=== PATIENT | female | born 1955 | race Caucasian/White ===

== ENCOUNTER 2016-03-25 10:24 | Emergency (ER) | payer OTHER ==
[2016-03-25 10:47] VITALS: BP 105/62
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
[2016-03-25] MEDS ORDERED: LORazepam TAB(*) 1 MG PO ONE ×2 (12:35→12:47)
== END 2016-03-25 12:57 | disposition home or self-care (01) ==
LOC: UCCORT 10:24
DX: F41.9 Anxiety disorder, unspecified (principal); F42.9 Obsessive-compulsive disorder, unspecified; E03.9 Hypothyroidism, unspecified; Z88.5 Allergy status to narcotic agent; Z88.2 Allergy status to sulfonamides
CPT/HCPCS: 99212; A9270-GY; G0463

== ENCOUNTER 2016-05-19 17:08 | Inpatient (IN) | payer OTHER ==
[2016-05-19 17:56] LABS: Hematocrit 39 % (35-47); Hemoglobin 13.4 g/dl (12.0-16.0); Mean Corpuscular HGB Conc 34 g/dl (31-36); Mean Corpuscular Hemoglobin 31 pg (27-31); Mean Corpuscular Volume 92 fL (80-97); Mean Platelet Volume 8 um3 (7.4-10.4); Red Blood Count 4.28 10^6/ul (4.0-5.4); Red Cell Distribution Width 14 % (10.5-15); White Blood Count 9.8 10^3/ul (3.5-10.8)
[2016-05-19 18:09] LABS: Urine Bacteria Absent (Absent); Urine Bilirubin Negative (Negative); Urine Glucose Negative (Negative); Urine Nitrite Negative (Negative)
[2016-05-19 18:11] LABS: ALT 21 U/L (7-52); AST 20 U/L (13-39); Albumin 4.5 g/dL (3.2-5.2); Alkaline Phosphatase 61 U/L (34-104); Anion Gap 7 mmol/L (2-11); BUN/Creatinine Ratio 16.9 (8-20); Blood Urea Nitrogen 13 mg/dL (6-24); CO2 Carbon Dioxide 23 mmol/L (22-32); Calcium 9.5 mg/dL (8.6-10.3); Chloride 105 mmol/L (101-111); EGFR Non-African American 76.2 (>60); Globulin 2.9 g/dL (2-4); Glucose 81 mg/dL (70-100); Sodium 135 mmol/L (133-145); Total Protein 7.4 g/dL (6.4-8.9)
[2016-05-19 18:12] LABS: Benzodiazepine Urine Screen None Detected (None Detect)
[2016-05-19 18:25] LABS: Acetaminophen < 15 mcg/mL; Alcohol 161 mg/dL (<10); Salicylate < 2.50 mg/dL (<30)
[2016-05-19] MEDS ORDERED: LORazepam TAB(*) 1 MG PO ONE (18:33)
[2016-05-19 18:35] LABS: TSH (Thyroid Stimulating Horm) 8.07 mcIU/mL (0.34-5.60)
--- NOTE | 2016-05-19 19:16 | ED ---
Mahin Plummer Billy, scribed for Zain Grier MD on 05/19/16 at 1738 . Psychiatric Complaint - HPI Summary HPI Summary: Patient is a 60 year-old female with a history of "psychosis and uncontrolled OCD" coming to [facility] for MHE. She was brought to the ED by her daughter. She states that her symptoms have been ongoing for the last year, and have gotten much worse in the last 3 weeks. She reports visual hallucinations and anxiety. Denies any prior anti-psychotic meds. She reports SI, stating, "I don't want to live but I don't want to ." Denies HI. She had two beers today to self- medicate for her OCD. - History Of Current Complaint Chief Complaint: EDMentalHealth Time Seen by Provider: 05/19/16 17:22 Hx Obtained From: Patient Hx Last Menstrual Period: 5 yrs Onset/Duration: Gradual Onset, Worse Since - 3 weeks Timing: Constant Severity Initially: Moderate Severity Currently: Moderate Character: Depressed, Anxious Aggravating Factor(s): Nothing Alleviating Factor(s): Nothing Associated Signs And Symptoms: Positive: Hallucinating Related History: Positive For: Prior Psychiatric Issues Has Suicidal: Reports: Thoughts. Denies: With A Plan Has Homicidal: Denies: Thoughts, With A Plan - Allergies/Home Medications Allergies/Adverse Reactions: Allergies Allergy/AdvReac Type Severity Reaction Status Date / Time Morphine Allergy Severe Swelling Verified 05/19/16 17:12 Of Face,Lips,& Throat Sulfa Drugs Allergy Intermediate Rash Verified 05/19/16 17:12 PMH/Surg Hx/FS Hx/Imm Hx Endocrine/Hematology History: Reports: Hx Thyroid Disease - Hypothyroid Cardiovascular History: Denies: Hx Pacemaker/ICD Sensory History: Denies: Hx Hearing Aid Psychiatric History: Reports: Other Psychiatric Issues/Disorders - OCD, psychosis Denies: Hx Panic Disorder Infectious Disease History: No Infectious Disease History: Denies: Traveled Outside the [place] in Last 30 Days - Family History Known Family History: Positive: Other - no hx suicide; kidney disease in her daughter - Social History Alcohol Use: None Substance Use Type: Reports: None Smoking Status (MU): Heavy Every Day Tobacco Smoker Review of Systems Negative: Fever Positive: Anxious, Depressed, Other - see HPI All Other Systems Reviewed And Are Negative: Yes Physical Exam Triage Information Reviewed: Yes Vital Signs On Initial Exam: Initial Vitals Temp Pulse Resp BP Pulse Ox 97.4 F 71 18 123/74 98 05/19/16 17:10 05/19/16 17:10 05/19/16 17:10 05/19/16 17:10 05/19/16 17:10 Vital Signs Reviewed: Yes Appearance: Positive: Well-Appearing, No Pain Distress Skin: Positive: Warm, Skin Color Reflects Adequate Perfusion, Dry Head/Face: Positive: Normal Head/Face Inspection Eyes: Positive: EOMI, DELFINA ENT: Positive: Normal ENT inspection Neck: Positive: Supple, Nontender Respiratory/Lung Sounds: Positive: Clear to Auscultation, Breath Sounds Present Cardiovascular: Positive: RRR Abdomen Description: Positive: Nontender, Soft Bowel Sounds: Positive: Present Musculoskeletal: Positive: Normal, Strength/ROM Intact Neurological: Positive: Normal, Sensory/Motor Intact, Alert, Oriented to Person Place, Time Psychiatric: Positive: Affect/Mood Appropriate AVPU Assessment: Alert Diagnostics - Vital Signs Vital Signs Temp Pulse Resp BP Pulse Ox 05/19/16 17:10 97.4 F 71 18 123/74 98 - Laboratory Lab Results: Lab Results 05/19/16 05/19/16 05/19/16 Range/Units 17:35 17:35 17:35 WBC 9.8 (3.5-10.8) 10^3/ul RBC 4.28 (4.0-5.4) 10^6/ul Hgb 13.4 (12.0-16.0) g/dl Hct 39 (35-47) % MCV 92 (80-97) fL MCH 31 (27-31) pg MCHC 34 (31-36) g/dl RDW 14 (10.5-15) % Plt Count 328 (150-450) 10^3/ul MPV 8 (7.4-10.4) um3 Neut % (Auto) 44.5 (38-83) % Lymph % (Auto) 44.8 (25-47) % [place] % (Auto) 4.7 (1-9) % Eos % (Auto) 4.7 (0-6) % Baso % (Auto) 1.3 (0-2) % Absolute Neuts (auto) 4.4 (1.5-7.7) 10^3/ul Absolute Lymphs (auto) 4.4 (1.0-4.8) 10^3/ul Absolute Monos (auto) 0.5 (0-0.8) 10^3/ul Absolute Eos (auto) 0.5 (0-0.6) 10^3/ul Absolute Basos (auto) 0.1 (0-0.2) 10^3/ul Absolute Nucleated RBC 0.01 10^3/ul Nucleated RBC % 0.1 Sodium 135 (133-145) mmol/L Potassium 4.0 (3.5-5.0) mmol/L Chloride 105 (101-111) mmol/L Carbon Dioxide 23 (22-32) mmol/L Anion Gap 7 (2-11) mmol/L BUN 13 (6-24) mg/dL Creatinine 0.77 (0.51-0.95) mg/dL Est GFR ( Amer) 98.0 (>60) Est GFR (Non-Af Amer) 76.2 (>60) BUN/Creatinine Ratio 16.9 (8-20) Glucose 81 (70-100) mg/dL Calcium 9.5 (8.6-10.3) mg/dL Total Bilirubin 0.30 (0.2-1.0) mg/dL AST 20 (13-39) U/L ALT 21 (7-52) U/L Alkaline Phosphatase 61 (34-104) U/L Total Protein 7.4 (6.4-8.9) g/dL Albumin 4.5 (3.2-5.2) g/dL Globulin 2.9 (2-4) g/dL Albumin/Globulin Ratio 1.6 (1-3) TSH 8.07 H (0.34-5.60) mcIU/mL Urine Color Straw Urine Appearance Clear Urine pH 6.0 (5-9) Ur Specific [place] 1.003 L (1.010-1.030) Urine Protein Negative (Negative) Urine Ketones Negative (Negative) Urine Blood Negative (Negative) Urine Nitrate Negative (Negative) Urine Bilirubin Negative (Negative) Urine Urobilinogen Negative (Negative) Ur Leukocyte Esterase 3+ H (Negative) Urine WBC (Auto) 2+(11-20/hpf) H (Absent) Urine RBC (Auto) Absent (Absent) Ur Squamous Epith Cells Present H (Absent) Urine Bacteria Absent (Absent) Urine Glucose Negative (Negative) Salicylates < 2.50 (<30) mg/dL Urine Opiates Screen (None Detect) Acetaminophen < 15 mcg/mL Ur Barbiturates Screen (None Detect) Ur Phencyclidine Scrn (None Detect) Ur Amphetamines Screen (None Detect) U Benzodiazepines Scrn (None Detect) Urine Cocaine Screen (None Detect) U Cannabinoids Screen (None Detect) Serum Alcohol 161 H (<10) mg/dL 05/19/16 Range/Units 17:35 WBC (3.5-10.8) 10^3/ul RBC (4.0-5.4) 10^6/ul Hgb (12.0-16.0) g/dl Hct (35-47) % MCV (80-97) fL MCH (27-31) pg MCHC (31-36) g/dl RDW (10.5-15) % Plt Count (150-450) 10^3/ul MPV (7.4-10.4) um3 Neut % (Auto) (38-83) % Lymph % (Auto) (25-47) % [place] % (Auto) (1-9) % Eos % (Auto) (0-6) % Baso % (Auto) (0-2) % Absolute Neuts (auto) (1.5-7.7) 10^3/ul Absolute Lymphs (auto) (1.0-4.8) 10^3/ul Absolute Monos (auto) (0-0.8) 10^3/ul Absolute Eos (auto) (0-0.6) 10^3/ul Absolute Basos (auto) (0-0.2) 10^3/ul Absolute Nucleated RBC 10^3/ul Nucleated RBC % Sodium (133-145) mmol/L Potassium (3.5-5.0) mmol/L Chloride (101-111) mmol/L Carbon Dioxide (22-32) mmol/L Anion Gap (2-11) mmol/L BUN (6-24) mg/dL Creatinine (0.51-0.95) mg/dL Est GFR ( Amer) (>60) Est GFR (Non-Af Amer) (>60) BUN/Creatinine Ratio (8-20) Glucose (70-100) mg/dL Calcium (8.6-10.3) mg/dL Total Bilirubin (0.2-1.0) mg/dL AST (13-39) U/L ALT (7-52) U/L Alkaline Phosphatase (34-104) U/L Total Protein (6.4-8.9) g/dL Albumin (3.2-5.2) g/dL Globulin (2-4) g/dL Albumin/Globulin Ratio (1-3) TSH (0.34-5.60) mcIU/mL Urine Color Urine Appearance Urine pH (5-9) Ur Specific [place] (1.010-1.030) Urine Protein (Negative) Urine Ketones (Negative) Urine Blood (Negative) Urine Nitrate (Negative) Urine Bilirubin (Negative) Urine Urobilinogen (Negative) Ur Leukocyte Esterase (Negative) Urine WBC (Auto) (Absent) Urine RBC (Auto) (Absent) Ur Squamous Epith Cells (Absent) Urine Bacteria (Absent) Urine Glucose (Negative) Salicylates (<30) mg/dL Urine Opiates Screen None detected (None Detect) Acetaminophen mcg/mL Ur Barbiturates Screen None detected (None Detect) Ur Phencyclidine Scrn None detected (None Detect) Ur Amphetamines Screen None detected (None Detect) U Benzodiazepines Scrn None detected (None Detect) Urine Cocaine Screen None detected (None Detect) U Cannabinoids Screen None detected (None Detect) Serum Alcohol (<10) mg/dL Result Diagrams: 05/19/16 17:35 05/19/16 17:35 Lab Statement: Any lab studies that have been ordered have been reviewed, and results considered in the medical decision making process. Course/Dx - Course Assessment/Plan: MHE PENDING AT SHIFT CHANGE STABLE - Differential Dx/Clinical Impression Provider Diagnosis: Mental health problem, Hypothyroid Discharge - Discharge Plan Condition: Stable Disposition: [facility]IATRIC FACILITY[facility] Referrals: Zulema Zaragoza MD [Primary Care Provider] - The documentation as recorded by the Mahin henderson Billy accurately reflects the service I personally performed and the decisions made by me, Zani Grier MD.
[2016-05-19] MEDS ORDERED: Nitrofurantoin Macrocrystals* 50 MG CAP PO ONE (20:18)
[2016-05-19 21:23] LABS: Free T4 0.76 ng/dL (0.61-1.12)
[2016-05-19 21:27] LABS: Total T3 0.86 ng/mL (0.87-1.78)
[2016-05-20] MEDS ORDERED: Al Hydrox/Mg Hydrox/Simet LIQ* 30 ML UDC PO PRN (00:30)
[2016-05-20] MEDS ORDERED: Nicotine Inhaler* 10 MG AMP INH PRN (00:30)
[2016-05-20] MEDS ORDERED: Mouth Piece, Nicotine* 1 EACH CARTRIDGE INH ONE (01:00)
[2016-05-20] MEDS ORDERED: Nitrofurantoin Macrocrystals* 100 MG CAP PO ONE (01:00)
[2016-05-20] MEDS: Levothyroxine TAB* 88 MCG TAB PO SCH (08:21)
[2016-05-20] MEDS: Nicotine PATCH 14 MG/24 HR* PATCH TRANSDERM SCH (08:21)
[2016-05-20] MEDS: Vitamin THERAPEUTIC TAB PO SCH (08:21)
[2016-05-20] MEDS: FLUoxetine CAP* 20 MG PO SCH (14:29)
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
[2016-05-20] MEDS: QUEtiapine TAB* 25 MG PO PRN (20:26)
[2016-05-20] MEDS: Nicotine Patch Removal NOTE PATCH OFF SCH (20:34)
[2016-05-21] MEDS: Nicotine PATCH 14 MG/24 HR* PATCH TRANSDERM SCH (08:30)
[2016-05-21] MEDS: Vitamin THERAPEUTIC TAB PO SCH (08:31)
[2016-05-21] MEDS: Levothyroxine TAB* 88 MCG TAB PO SCH (08:31)
[2016-05-21] MEDS: FLUoxetine CAP* 20 MG PO SCH (08:31)
[2016-05-21] MEDS: Acetaminophen TAB* 325 MG PO PRN (13:53)
[2016-05-21] MEDS: QUEtiapine TAB* 25 MG PO PRN (22:25)
[2016-05-21] MEDS: Nicotine Patch Removal NOTE PATCH OFF SCH (22:30)
[2016-05-22] MEDS: Nicotine PATCH 14 MG/24 HR* PATCH TRANSDERM SCH (08:40)
[2016-05-22] MEDS: Vitamin THERAPEUTIC TAB PO SCH (08:41)
[2016-05-22] MEDS: Levothyroxine TAB* 88 MCG TAB PO SCH (08:41)
[2016-05-22] MEDS: FLUoxetine CAP* 20 MG PO SCH (08:41)
[2016-05-22 09:08] VITALS: BP 96/57
[2016-05-22] MEDS: Acetaminophen TAB* 325 MG PO PRN (11:36)
--- NOTE | 2016-05-22 13:09 | DS ---
Subjective - Subjective Service Types: [id number] [facility] Day Mgmt simple under 30 min Discharge Date: 05/22/16 Subjective: Ronda reports feeling much better, safe and ready to discharge. 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 Ronda denies any UTI symptoms: she feels she had increased urinary frequency on admission due to anxiety. She has no other physical complaints. Objective - Appearance Appearance: Healthy Appearing Dysmorphic Features: No Hygiene: Normal Grooming: Well Kept - Behavior Psychomotor Activities: Normal Exhibits Abnormal Movement: No - Attitude and Relatedness Attitude and Relatedness: Well Related Eye Contact: Good - Speech Quality: Unpressured Latencies: Normal Quantity: Appropriate - Mood Patient's Decription of Mood: "Good" - Affect Observed Affect: Good Affect Consistent with: Euthymia - Thought Process Patient's Thought Process: Coherent, Goal Directed Thought Content: No Passive Wish, No Suicidal Planning, No Homicidal Ideation, No Paranoid Ideation - Sensorium Experiencing Hallucinations: No, Sensorium is Clear Type of Hallucinations: Visual: No, Auditory: No, Command: No - Level of Consciousness Level of Consciousness: Alert Orientation: Yes Intact, Yes Orientated to Time, Yes Orientated to Place, Yes Orientated to Person - Impulse Control Impulse Control: Intact - Insight and Judgement Insight and Judgement: Fair - Group Participation Particating in Group Activities: Yes - Medication Management Medication Management Adherence: Yes Treatment Course & Assessment Clinical Course & Impression: Day 1 in hospital, 05.20.16: Ms. Valencia is a 60-year-old mother of 3, who has been suffering from obsessive-compulsive disorder symptomatology in the context of trauma of having discovered her nephew by hanging about a year ago. She endorsees also posttraumatic stress disorder symptoms. She has agreed to a trial of antidepressant and antipsychotic starting with Prozac 20 mg daily, Seroquel 25 mg every 2 hours p.r.n. anxiety and agitation. She can continue in the outpatient setting upward titration of the antidepressant medication against both depressive and obsessive-compulsive disorder symptoms. The antipsychotic medication does carry with it the side effect risks of weight gain, diabetes, high cholesterol and cataract. I have explained this to her. She has agreed that she can accept these risks for the possible benefits against her symptoms, also with the thought that low dose antipsychotic is only a temporary treatment as she recovers with increasing doses of Prozac. This is a very well-engaged woman who does appear quite knowledgeable about her situation, which bodes well for her recovery. We will be gathering collateral from her family. We will be encouraging her to make use of the therapeutic milieu and groups. Day 3 in hospital and day of discharge, 17: Ronda reports that she is feeling safe and ready for discharge and she requests discharge. Her daughter is supportive of discharge today. She is cleared for discharge today. She is assessed as at no acutely increased risk of harm to self or others, and capable of adequate self-care to avoid harm. She has been med compliant. She reports good effect of fluoxetine 20 mg and quetiapine 25 mg prn against anxiety particularly, and wishes to continue both, though with the quetiapine only at bedtime. She has voiced understanding and acceptance of principle side effect risks of these medications, which we reviewed again today. She has agreed to aftercare with [facility] and with her PCP for hypothyroidism, with elevated TSH on admission perhaps due to partial compliance, versus inadequate levothyroxine dose. Urine culture was negative and she has no symptoms of UTI, so she will not take an antibiotic as she does not have an infection to be treated. She reports that she will maintain abstinence from alcohol on her own. She requests nicotine patches to stay quit from smoking tobacco. Merits Inpatient Hospitalization: No Clear for Discharge: Adequate Clinical Respons, Acceptable Safety Profile, Low Utility of Inpt Care Inpatient DSM-IV Dx: 1. Posttraumatic stress disorder with prominent obsessive compulsive disorder symptoms. Rule out obsessive compulsive disorder as primary diagnosis. 2. Major depressive disorder. 3. History of alcohol use disorder, reportedly in long-term remission with only minor slips reported of late from total sobriety. - [place] II MR and Personality Disorder: Deferred - [place] III Medical Illness: Hypothyroidism - [place] IV Stressors: Prolonged ill effects of finding nephew by suicide via hanging Family: supportive children, still on good terms with exhusband Primary Support Group: family - [place] V [id number]: 65 Estimate of Highest-Past Year: 70 Discharge Planning - Discharge Planning Discharge Plan: Outpatient Follow Up Outpatient Program: [facility] Recommendations for Continuing Care: Medication Management, Psychotherapy, Substance Abuse Counseling, Primary Care Followup Medications: E-scripts sent in for all but *Levothyroxine, which she reports having on hand in good supply. Fluoxetine HCl (Prozac Cap*) 20 mg PO DAILY [facility] Last Admin: 05/22/16 08:41 Dose: 20 mg *Levothyroxine Sodium (Synthroid Tab*) 88 mcg PO DAILY@0600 [facility] Last Admin: 05/22/16 08:41 Dose: 88 mcg Nicotine (Nicotine Patch 14 Mg/24 Hr*) 1 patch TRANSDERM DAILY [facility] Last Admin: 05/22/16 08:40 Dose: 1 patch Quetiapine Fumarate (Seroquel Tab*) 50 mg PO at bedtime, changed at discharge from 25 mg q4Hrs prn Discharge Planning: Prescriptions provided for discharge [x] Yes [] No Follow up care details as per social work arrangements. Patient response to discharge plan: [x] eager for discharge [x] agreeable with discharge plan [] ambivalent about discharge [] disagrees with discharge today
== END 2016-05-22 14:20 | disposition home or self-care (01) | DRG 755 ==
LOC: ED 17:08 → BSU 23:18
PROVIDERS: ADMIT Psychiatry & Neurology Psychiatry; ATTEND Psychiatry & Neurology Psychiatry
DX: F42.9 Obsessive-compulsive disorder, unspecified (principal); F32.9 Major depressive disorder, single episode, unspecified; F43.10 Post-traumatic stress disorder, unspecified; E03.9 Hypothyroidism, unspecified; Z81.8 Family history of other mental and behavioral disorders; F17.210 Nicotine dependence, cigarettes, uncomplicated; Z88.2 Allergy status to sulfonamides; Z88.5 Allergy status to narcotic agent; Z28.21 Immunization not carried out because of patient refusal
CPT/HCPCS: 36415; 80053; 80307; 80320; 80329; 81003; 81015; 84439; 84443; 84479; 85025; 87086; 99222; 99238; A9270-GY; G0480

== ENCOUNTER 2017-10-16 20:23 | Inpatient (IN) | payer OTHER ==
--- NOTE | 2017-10-16 20:49 | ED ---
Psychiatric Complaint - HPI Summary HPI Summary: This is scribe Zak Davis, documenting for attending Stephani Lujan MD. This patient is a 62 year old F BIB [facility] under 941 status to ED with a chief complaint of SI since [employer]. According to the nurses triage notes, the patient states "I don't want to live anymore, I have had enough". She reports callling the police for help because she is feeling suicidal. She is depressed and suicidal and is reluctant to talk to Dr. Lujan. I, Dr. Lujan, personally performed the services described in this documentation as scribed in my presence and it is both accurate and complete. - History Of Current Complaint Chief Complaint: EDMentalHealth Time Seen by Provider: 10/16/17 20:34 Hx Obtained From: Patient - Patient's sx reported in the nurse's triage notes, Other: - Nurse's triage notes. Hx From Patient Unobtainable Due To: Other - Patient refuses to talk to Dr. Tai Mathews Last Menstrual Period: 5 yrs Onset/Duration: Sudden Onset, Still Present Timing: Constant Severity Currently: None Character: Depressed Aggravating Factor(s): Nothing Alleviating Factor(s): Nothing Has Suicidal: Reports: Thoughts - Allergies/Home Medications Allergies/Adverse Reactions: Allergies Allergy/AdvReac Type Severity Reaction Status Date / Time morphine Allergy Swelling Verified 10/16/17 21:08 Of Face,Lips,& Throat Sulfa (Sulfonamide Allergy Itching Verified 10/16/17 21:08 Antibiotics) PMH/Surg Hx/FS Hx/Imm Hx Endocrine/Hematology History: Reports: Hx Thyroid Disease - Hypothyroid Cardiovascular History: Denies: Hx Pacemaker/ICD Sensory History: Reports: Hx Contacts or Glasses Denies: Hx Hearing Aid Opthamlomology History: Reports: Hx Contacts or Glasses Psychiatric History: Reports: Hx Community Mental Health Tx - distant past, Hx Substance Abuse, Other Psychiatric Issues/Disorders - OCD Denies: Hx Eating Disorder, Hx Panic Disorder, Hx of Violent Episodes Against Others Infectious Disease History: No Infectious Disease History: Denies: Traveled Outside the [place] in Last 30 Days - Family History Known Family History: Positive: Other - no hx suicide; kidney disease in her daughter - Social History Alcohol Use: Occasionally Substance Use Type: Reports: None Smoking Status (MU): Heavy Every Day Tobacco Smoker Amount Used/How Often: one PPD Length of Time of Smoking/Using Tobacco: "years" Have You Smoked in the Last Year: Yes Review of Systems Positive: Other - Patient refuses to talk to Dr. Lujan. Patient's sx gathered from nurse's triage notes. Positive: Depressed, Other - Patient is suicidal All Other Systems Reviewed And Are Negative: Yes Physical Exam - Summary Physical Exam Summary: VITAL SIGNS: Reviewed. GENERAL: Patient is a well-developed and nourished FEMALE who is lying comfortable in the stretcher. Patient is not in any acute respiratory distress. The patient is tearful. HEAD AND FACE: No signs of trauma. No ecchymosis, hematomas or skull depressions. No sinus tenderness. EYES: PERRLA, EOMI x 2, No injected conjunctiva, no nystagmus. EARS: Hearing grossly intact. Ear canals and tympanic membranes are within normal limits. MOUTH: Oropharynx within normal limits. NECK: Supple, trachea is midline, no adenopathy, no JVD, no carotid bruit, no c- spine tenderness, neck with full ROM. CHEST: Symmetric, no tenderness at palpation LUNGS: Clear to auscultation bilaterally. No wheezing or crackles. CVS: Regular rate and rhythm, S1 and S2 present, no murmurs or gallops appreciated. ABDOMEN: Soft, non-tender. No signs of distention. No rebound no guarding, and no masses palpated. Bowel sounds are normal. EXTREMITIES: FROM in all major joints, no edema, no cyanosis or clubbing. NEURO: Alert and oriented x 3. No acute neurological deficits. Speech is normal and follows commands. SKIN: Dry and warm Triage Information Reviewed: Yes Vital Signs On Initial Exam: Initial Vitals Temp Pulse Resp BP Pulse Ox 97.7 F 64 22 142/86 96 10/16/17 20:24 10/16/17 20:24 10/16/17 20:24 10/16/17 20:24 10/16/17 20:24 Vital Signs Reviewed: Yes Diagnostics - Vital Signs Vital Signs Temp Pulse Resp BP Pulse Ox 10/16/17 20:24 97.7 F 64 22 142/86 96 - Laboratory Result Diagrams: 10/16/17 20:49 10/16/17 20:49 Lab Statement: Any lab studies that have been ordered have been reviewed, and results considered in the medical decision making process. Course/Dx - Course Assessment/Plan: This patient is a 62 yo F and is here in the ED because according to the nurse, she is depressed. She refused to talk to me. She is tearful and is here for psych eval. This paitent will be signed out to Dr. Calabrese, awaiting MHE. - Differential Dx/Clinical Impression Differential Diagnosis/HQI/PQRI: Positive: Depression Provider Diagnosis: Depression Discharge - Sign-Out/Discharge Documenting (check all that apply): Sign-Out Patient - awaiting MHE Signing out patient TO: Jeremy Calabrese Receiving patient FROM: Stephani Lujan - Discharge Plan Referrals: Zulema Zaragoza MD [Primary Care Provider] -
[2017-10-16 21:02] LABS: ABS Basophils 0.1 10^3/ul (0-0.2); ABS Eosinophils 0.5 10^3/ul (0-0.6); ABS Lymphocytes 3.8 10^3/ul (1.0-4.8); ABS Monocytes 0.7 10^3/ul (0-0.8); ABS Neutrophils 4.1 10^3/ul (1.5-7.7); ABS Nucleated RBC 0 10^3/ul; Eosinophil % 5.1 % (0-6); Hematocrit 42 % (35-47); Hemoglobin 14.4 g/dl (12.0-16.0); Lymphocyte % 41.9 % (25-47); Mean Corpuscular HGB Conc 34 g/dl (31-36); Mean Corpuscular Hemoglobin 32 pg (27-31); Mean Corpuscular Volume 93 fL (80-97); Mean Platelet Volume 7.5 um3 (7.4-10.4); Nucleated Red Blood Cells % 0.1; Platelet Count 330 10^3/ul (150-450); Red Blood Count 4.52 10^6/ul (4.00-5.40); Red Cell Distribution Width 14 % (10.5-15); White Blood Count 9.1 10^3/ul (3.5-10.8)
[2017-10-16 21:09] LABS: Urine Appearance Clear; Urine Blood Negative (Negative); Urine Color Colorless; Urine Ketones Negative (Negative); Urine Protein Negative (Negative); Urine Specific Gravity 1.001 (1.010-1.030); Urine Urobilinogen Negative (Negative)
[2017-10-16 21:16] LABS: EGFR Non-African American 79.3 (>60)
[2017-10-16] MEDS ORDERED: LORazepam TAB(*) 1 MG PO ONE (21:16)
--- NOTE | 2017-10-16 21:26 | ED ---
Progress - Progress Note Progress Note: Pending MHE. Course/Dx - Diagnoses Provider Diagnoses: Alcohol use disorder Discharge - Sign-Out/Discharge Documenting (check all that apply): Sign-Out Patient Signing out patient TO: Jeremy Caalbrese - MHE/hold - Discharge Plan Referrals: Zulema Zaragoza MD [Primary Care Provider] -
[2017-10-17] MEDS ORDERED: Acetaminophen TAB* 325 MG PO ONE (02:24)
--- NOTE | 2017-10-17 08:37 | PN ---
ED Flex Patient Progress Note Date of Service: 10/16/17 Subjective: This is a 62 year-old F who is pending admission to [facility] / transfer to another psychiatric facility / discharge to home / or being observed secondary to depression and SI. Pt. examined in room F4. She is resting in bed comfortably. She has no complaints. Objective: Vitals: Most recent vital signs documented below. General NAD, Alert and oriented x3. Laboratory: Current laboratory results documented below. Assessment: Pending. MHE. Plan: Pending psychiatric or medical consultation to observe / transfer / admit / discharge will follow up daily . Will order morning medications. Vital Signs Temp Pulse Resp BP Pulse Ox 98.0 F 73 16 107/76 96 10/16/17 23:40 10/16/17 23:40 10/16/17 23:40 10/16/17 23:40 10/16/17 23:40 Lab Results - Entire Visit 10/16/17 10/16/17 10/16/17 21:00 21:00 20:49 WBC RBC Hgb Hct MCV MCH MCHC RDW Plt Count MPV Neut % (Auto) Lymph % (Auto) [place] % (Auto) Eos % (Auto) Baso % (Auto) Absolute Neuts (auto) Absolute Lymphs (auto) Absolute Monos (auto) Absolute Eos (auto) Absolute Basos (auto) Absolute Nucleated RBC Nucleated RBC % Sodium 141 Potassium 3.8 Chloride 108 Carbon Dioxide 24 Anion Gap 9 BUN 11 Creatinine 0.74 Est GFR ( Amer) 95.9 Est GFR (Non-Af Amer) 79.3 BUN/Creatinine Ratio 14.9 Glucose 88 Calcium 9.2 Total Bilirubin 0.30 AST 28 ALT 37 Alkaline Phosphatase 86 Total Protein 6.8 Albumin 4.0 Globulin 2.8 Albumin/Globulin Ratio 1.4 TSH 2.59 Urine Color Colorless Urine Appearance Clear Urine pH 6.0 Ur Specific [place] 1.001 L Urine Protein Negative Urine Ketones Negative Urine Blood Negative Urine Nitrate Negative Urine Bilirubin Negative Urine Urobilinogen Negative Ur Leukocyte Esterase Negative Urine Glucose Negative Salicylates < 2.50 Urine Opiates Screen None detected Acetaminophen < 15 Ur Barbiturates Screen None detected Ur Phencyclidine Scrn None detected Ur Amphetamines Screen None detected U Benzodiazepines Scrn Presumptive positive A Urine Cocaine Screen None detected U Cannabinoids Screen None detected Serum Alcohol 74 H 10/16/17 20:49 WBC 9.1 RBC 4.52 Hgb 14.4 Hct 42 MCV 93 MCH 32 H MCHC 34 RDW 14 Plt Count 330 MPV 7.5 Neut % (Auto) 44.7 Lymph % (Auto) 41.9 [place] % (Auto) 7.5 H Eos % (Auto) 5.1 Baso % (Auto) 0.8 Absolute Neuts (auto) 4.1 Absolute Lymphs (auto) 3.8 Absolute Monos (auto) 0.7 Absolute Eos (auto) 0.5 Absolute Basos (auto) 0.1 Absolute Nucleated RBC 0 Nucleated RBC % 0.1 Sodium Potassium Chloride Carbon Dioxide Anion Gap BUN Creatinine Est GFR ( Amer) Est GFR (Non-Af Amer) BUN/Creatinine Ratio Glucose Calcium Total Bilirubin AST ALT Alkaline Phosphatase Total Protein Albumin Globulin Albumin/Globulin Ratio TSH Urine Color Urine Appearance Urine pH Ur Specific [place] Urine Protein Urine Ketones Urine Blood Urine Nitrate Urine Bilirubin Urine Urobilinogen Ur Leukocyte Esterase Urine Glucose Salicylates Urine Opiates Screen Acetaminophen Ur Barbiturates Screen Ur Phencyclidine Scrn Ur Amphetamines Screen U Benzodiazepines Scrn Urine Cocaine Screen U Cannabinoids Screen Serum Alcohol
[2017-10-17] MEDS ORDERED: FLUoxetine CAP* 20 MG PO ONE (08:38)
--- NOTE | 2017-10-17 09:43 | ED ---
Progress - Progress Note Progress Note: This is scribe Saul Liang documenting for attending Jeremy Calabrese M.D. Patient was received as a sign-out from Dr. Lujan to Dr. Calabrese. 0939 -- Dr. Ignacio reviewed patient's case with Dr. Calabrese. Patient will be admitted to hospital by Dr. Ignacio w/ Dx of depressive disorder, nos. [id number] -- Dr. Calabrese signs off on voluntary admission of patient. I, Dr. Calabrese, personally performed the services described in this documentation as scribed in my presence and it is both accurate and complete. - Consult/PCP Time Called: 09:20 Course/Dx - Course Course Of Treatment: This patient is a 62 yo F and is here in the ED because according to the nurse, she is depressed. She refused to talk to Dr. Lujan. She is tearful and is here for psych eval. This patient will be signed out to Dr. Calabrese, awaiting MHE. Patient was received as a sign-out from Dr. Lujan to Dr. Calabrese at 0700. At 0939, Dr. Ignacio reviewed patient's case with Dr. Calabrese. Patient will be admitted to hospital by Dr. Ignacio w/ Dx of depressive disorder, nos. [id number] -- Dr. Calabrese signs off on voluntary admission of patient. - Diagnoses Provider Diagnoses: Depression, Depressive disorder - Provider Notifications Discussed Care Of Patient With: Wes Ignacio Time Discussed With Above Provider: 09:39 Instructed by Provider To: Other - 938 -- Dr. Ignacio reviewed patient's case with Dr. Calabrese. Patient will be admitted to hospital by Dr. Ignacio w/ Dx of depressive disorder, nos. Discharge - Sign-Out/Discharge Documenting (check all that apply): Patient Departure - admit - Discharge Plan Condition: Fair Disposition: ADMITTED TO [facility] Referrals: Zulema Zaragoza MD [Primary Care Provider] -
[2017-10-17] MEDS ORDERED: Al Hydrox/Mg Hydrox/Simet LIQ* 30 ML UDC PO PRN (09:57)
[2017-10-17] MEDS ORDERED: Acetaminophen TAB* 325 MG PO PRN (09:57)
[2017-10-17] MEDS ORDERED: Gabapentin CAP(*) 100 MG PO ONE (11:05)
[2017-10-17] MEDS: Gabapentin CAP(*) 100 MG PO SCH ×3 (16:10→22:24)
--- NOTE | 2017-10-17 16:24 | PN ---
ED Flex Patient Progress Note Date of Service: 10/17/17 Subjective: 62 y.o. white female known to [facility] from previous admission arrives c/o SI and symptoms of PTSD. Objective: middle aged white female, depressed and anxious, cannot contract for safety Assessment: PTSD Plan: Admit to [facility] pending female bed availability. Vital Signs Temp Pulse Resp BP Pulse Ox 98.1 F 52 16 108/60 100 10/17/17 14:06 10/17/17 14:06 10/17/17 14:06 10/17/17 14:06 10/17/17 14:06 Lab Results - Entire Visit 10/16/17 10/16/17 10/16/17 21:00 21:00 20:49 WBC RBC Hgb Hct MCV MCH MCHC RDW Plt Count MPV Neut % (Auto) Lymph % (Auto) [place] % (Auto) Eos % (Auto) Baso % (Auto) Absolute Neuts (auto) Absolute Lymphs (auto) Absolute Monos (auto) Absolute Eos (auto) Absolute Basos (auto) Absolute Nucleated RBC Nucleated RBC % Sodium 141 Potassium 3.8 Chloride 108 Carbon Dioxide 24 Anion Gap 9 BUN 11 Creatinine 0.74 Est GFR ( Amer) 95.9 Est GFR (Non-Af Amer) 79.3 BUN/Creatinine Ratio 14.9 Glucose 88 Calcium 9.2 Total Bilirubin 0.30 AST 28 ALT 37 Alkaline Phosphatase 86 Total Protein 6.8 Albumin 4.0 Globulin 2.8 Albumin/Globulin Ratio 1.4 TSH 2.59 Urine Color Colorless Urine Appearance Clear Urine pH 6.0 Ur Specific [place] 1.001 L Urine Protein Negative Urine Ketones Negative Urine Blood Negative Urine Nitrate Negative Urine Bilirubin Negative Urine Urobilinogen Negative Ur Leukocyte Esterase Negative Urine Glucose Negative Salicylates < 2.50 Urine Opiates Screen None detected Acetaminophen < 15 Ur Barbiturates Screen None detected Ur Phencyclidine Scrn None detected Ur Amphetamines Screen None detected U Benzodiazepines Scrn Presumptive positive A Urine Cocaine Screen None detected U Cannabinoids Screen None detected Serum Alcohol 74 H 10/16/17 20:49 WBC 9.1 RBC 4.52 Hgb 14.4 Hct 42 MCV 93 MCH 32 H MCHC 34 RDW 14 Plt Count 330 MPV 7.5 Neut % (Auto) 44.7 Lymph % (Auto) 41.9 [place] % (Auto) 7.5 H Eos % (Auto) 5.1 Baso % (Auto) 0.8 Absolute Neuts (auto) 4.1 Absolute Lymphs (auto) 3.8 Absolute Monos (auto) 0.7 Absolute Eos (auto) 0.5 Absolute Basos (auto) 0.1 Absolute Nucleated RBC 0 Nucleated RBC % 0.1 Sodium Potassium Chloride Carbon Dioxide Anion Gap BUN Creatinine Est GFR ( Amer) Est GFR (Non-Af Amer) BUN/Creatinine Ratio Glucose Calcium Total Bilirubin AST ALT Alkaline Phosphatase Total Protein Albumin Globulin Albumin/Globulin Ratio TSH Urine Color Urine Appearance Urine pH Ur Specific [place] Urine Protein Urine Ketones Urine Blood Urine Nitrate Urine Bilirubin Urine Urobilinogen Ur Leukocyte Esterase Urine Glucose Salicylates Urine Opiates Screen Acetaminophen Ur Barbiturates Screen Ur Phencyclidine Scrn Ur Amphetamines Screen U Benzodiazepines Scrn Urine Cocaine Screen U Cannabinoids Screen Serum Alcohol
[2017-10-17] MEDS: Nicotine Patch Removal NOTE PATCH OFF SCH (21:42)
[2017-10-17] MEDS: QUEtiapine TAB* 25 MG PO SCH (22:25)
[2017-10-18] MEDS ORDERED: FLUoxetine CAP* 20 MG PO SCH (09:00)
[2017-10-18] MEDS: Gabapentin CAP(*) 100 MG PO SCH ×4 (09:33→21:04)
[2017-10-18] MEDS: Levothyroxine TAB* 88 MCG TAB PO SCH (09:33)
[2017-10-18] MEDS: Nicotine PATCH 14 MG/24 HR* PATCH TRANSDERM SCH (09:34)
--- NOTE | 2017-10-18 11:49 | PN ---
MHU: Group Therapy Note - Service Type Service Type: [id number] Group Psychotherapy - Cognitive Behavioral Group Therapy ( CBT):Patient was attentive and participatory in CBT programming this morning, and remained in good behavioral control. Patient expressed positive insights regarding relevant treatment interventions and goals.
[2017-10-18] MEDS ORDERED: DULoxetine DR CAP* 30 MG CAP.DR PO ONE (15:11)
--- NOTE | 2017-10-18 16:11 | PN ---
MHU: Group Therapy Note - Service Type Service Type: [id number] Group Psychotherapy - Medication Education Group: Patient was attentive and participatory in group, and remained in good behavioral control. Patient expressed positive insights regarding relevant treatment interventions. Patient stated understanding of material discussed and had appropriate questions.
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
[2017-10-18] MEDS: QUEtiapine TAB* 25 MG PO SCH (21:04)
[2017-10-18] MEDS: Nicotine Patch Removal NOTE PATCH OFF SCH (21:05)
[2017-10-19] MEDS: Levothyroxine TAB* 88 MCG TAB PO SCH (08:26)
[2017-10-19] MEDS: DULoxetine DR CAP* 60 MG CAP.DR PO SCH (08:26)
[2017-10-19] MEDS: Gabapentin CAP(*) 100 MG PO SCH ×4 (08:26→20:09)
[2017-10-19] MEDS: Nicotine PATCH 14 MG/24 HR* PATCH TRANSDERM SCH (08:27)
--- NOTE | 2017-10-19 11:32 | PN ---
Subjective - Subjective Date of Service: 10/19/17 Service Type: 99934 Hosp care 25 min moderate complexity Subjective: Patient denies side effect from medication changes. She endorses sad mood and loneliness. She states she has been sleeping well. Patient reports calling her daughter to ask for clothing and toiletries and was told that she does not want to help. Pt states "she's pissed at me." Patient signed GIANNA and allows engineering technical writer to speak with daughter to attempt to facilitate communication and a family meeting. Cigarette Lighter Repairer left with number from patient's phone: [phone]. Pt goes on to describe how she has cared for others her entire life and not herself. She states frustration that no one from her family is helping her. She eludes to a friend in [place] she could call. Cigarette Lighter Repairer encourages her to reach out and she states "I'll think about it." She brings up topic of being a recovering alcoholic. I ask what this means and she reports no longer drinking. Gently challenged her on positive alcohol upon arrival. Objective - Appearance Appearance: Well Developed/Nourished Dysmorphic Features: Yes Hygiene: Normal Grooming: Disheveled - Behavior Psychomotor Activities: Normal Exhibits Abnormal Movement: No - Attitude and Relatedness Attitude and Relatedness: Withdrawn Eye Contact: Fair - Speech Quality: Unpressured Latencies: Normal Quantity: Appropriate - Mood Patient's Decription of Mood: "Sad" - Affect Observed Affect: Depressed Affect Consistent with: Dysphoria - Thought Process Patient's Thought Process: Coherent, Circumstantial, Impoverished Thought Content: Yes Passive Wish, No Suicidal Planning, No Homicidal Ideation, No Paranoid Ideation - Sensorium Experiencing Hallucinations: No, Sensorium is Clear Type of Hallucinations: Visual: No, Auditory: No, Command: No - Level of Consciousness Level of Consciousness: Alert Orientation: Yes Intact, Yes Orientated to Time, Yes Orientated to Place, Yes Orientated to Person - Impulse Control Impulse Control: Tenuous - Insight and Judgement Insight and Judgement: Poor - Group Participation Particating in Group Activities: Yes - Medication Management Medication Management Adherence: Yes Assessment - Assessment Merits Inpatient Hospitalization: For Immediate Safety, For Stabilization Inpatient DSM-V Dx: F43.12 Clinical Impression: 62yo white female, , unemployed, domiciled who presented to ED with c/o increased depressed mood and suicidal gesture. She is an active client of [facility] due to DUI last year. Patient continues to engage in alcohol use and is likely minimizing this. She merits hospitalization for immediate safety and stabilization. Plan - Plan Treatment Plan: Name: PENELOPE DELATORRE Birthdate: 1955 [id number] continue acute intensive psychiatric treatment. may decrease to q30min and allow staff pass. increase duloxetine and continue gabapentin, quetiapine. involve patient's daughter in dc planning. refer to [facility] at discharge, recommend PROS. Continued Medication Management: Different Medication Medications: Current Medications Acetaminophen (Tylenol Tab*) 650 mg PO Q4H PRN PRN Reason: for pain; or Temp >101 F Al Hydrox/Mg Hydrox/Simethicone (Maalox Plus*) 30 ml PO Q4H PRN PRN Reason: INDIGESTION Duloxetine HCl (Cymbalta Cap*) 60 mg PO DAILY [facility] Last Admin: 10/19/17 08:26 Dose: 60 mg Gabapentin (Neurontin Cap(*)) 200 mg PO QID [facility] Last Admin: 10/19/17 08:26 Dose: 200 mg Levothyroxine Sodium (Synthroid Tab*) 88 mcg PO DAILY@0600 [facility] Last Admin: 10/19/17 08:26 Dose: 88 mcg Nicotine (Nicotine Patch 14 Mg/24 Hr*) 1 patch TRANSDERM DAILY [facility] Last Admin: 10/19/17 08:27 Dose: 1 patch Pharmacy Profile Note (Nicotine Patch Removal Note*) 1 note PATCH OFF 2100 [facility] Last Admin: 10/18/17 21:05 Dose: 1 note Quetiapine Fumarate (Seroquel Tab*) 50 mg PO BEDTIME [facility] Last Admin: 10/18/17 21:04 Dose: 50 mg - Discharge Plan Discharge Plan: Outpatient Follow Up Outpatient Program: [facility]
--- NOTE | 2017-10-19 11:37 | PN ---
MHU: Group Therapy Note - Service Type Service Type: [id number] Group Psychotherapy - Cognitive Behavioral Group Therapy ( CBT):Patient was attentive and participatory in CBT programming this morning, and remained in good behavioral control. Patient expressed positive insights regarding relevant treatment interventions and goals.
[2017-10-19] MEDS: QUEtiapine TAB* 25 MG PO SCH (20:09)
[2017-10-19] MEDS: Nicotine Patch Removal NOTE PATCH OFF SCH (20:10)
[2017-10-20] MEDS: Gabapentin CAP(*) 100 MG PO SCH ×4 (08:46→20:36)
[2017-10-20] MEDS: Levothyroxine TAB* 88 MCG TAB PO SCH (08:46)
[2017-10-20] MEDS: DULoxetine DR CAP* 60 MG CAP.DR PO SCH (08:46)
[2017-10-20] MEDS: Nicotine PATCH 14 MG/24 HR* PATCH TRANSDERM SCH (08:47)
[2017-10-20] MEDS: QUEtiapine TAB* 25 MG PO SCH (20:37)
[2017-10-20] MEDS: Nicotine Patch Removal NOTE PATCH OFF SCH (22:55)
[2017-10-21] MEDS: Levothyroxine TAB* 88 MCG TAB PO SCH (07:36)
[2017-10-21] MEDS: Nicotine PATCH 14 MG/24 HR* PATCH TRANSDERM SCH (08:42)
[2017-10-21] MEDS: DULoxetine DR CAP* 60 MG CAP.DR PO SCH (08:42)
[2017-10-21] MEDS: Gabapentin CAP(*) 100 MG PO SCH ×4 (08:43→21:12)
--- NOTE | 2017-10-21 19:13 | PN ---
Subjective - Subjective Subjective: Penelope reports feeling sad, hurt and upset that neither one of her 3 children has called since admission. She endorses improved appetite and sleep, denies SI and contracts for safety. She is visible in the milieu and adherent to unit's routines. Objective - Appearance Appearance: Healthy Appearing Dysmorphic Features: No Hygiene: Normal Grooming: Well Kept - Behavior Psychomotor Activities: Normal Exhibits Abnormal Movement: No - Attitude and Relatedness Attitude and Relatedness: Cooperative Eye Contact: Fair - Speech Latencies: Normal Quantity: Appropriate - Mood Patient's Decription of Mood: "Sad" - Affect Observed Affect: Constricted Affect Consistent with: Dysphoria - Thought Process Patient's Thought Process: Coherent, Goal Directed Thought Content: No Passive Wish, No Suicidal Planning, No Homicidal Ideation, No Paranoid Ideation - Sensorium Experiencing Hallucinations: No, Sensorium is Clear - Level of Consciousness Level of Consciousness: Alert Orientation: Yes Intact - Impulse Control Impulse Control: Intact - Insight and Judgement Insight and Judgement: Fair - Group Participation Particating in Group Activities: Yes - Medication Management Medication Management Adherence: Yes Assessment - Assessment Merits Inpatient Hospitalization: Consolidate Improvements, For Discharge Planning Inpatient DSM-V Dx: F43.12 Clinical Impression: Continues to endorse high level of distress but denying suicidality and kendra for safety, tolerating medication trials. She needs continued admission for stabilization. Plan - Plan Treatment Plan: Name: PENELOPE DELATORRE Birthdate: 1955 [id number] Medications: Current Medications Acetaminophen (Tylenol Tab*) 650 mg PO Q4H PRN PRN Reason: for pain; or Temp >101 F Al Hydrox/Mg Hydrox/Simethicone (Maalox Plus*) 30 ml PO Q4H PRN PRN Reason: INDIGESTION Duloxetine HCl (Cymbalta Cap*) 60 mg PO DAILY [facility] Last Admin: 10/21/17 08:42 Dose: 60 mg Gabapentin (Neurontin Cap(*)) 200 mg PO QID [facility] Last Admin: 10/21/17 17:56 Dose: 200 mg Levothyroxine Sodium (Synthroid Tab*) 88 mcg PO DAILY@0600 [facility] Last Admin: 10/21/17 07:36 Dose: 88 mcg Nicotine (Nicotine Patch 14 Mg/24 Hr*) 1 patch TRANSDERM DAILY [facility] Last Admin: 10/21/17 08:42 Dose: 1 patch Pharmacy Profile Note (Nicotine Patch Removal Note*) 1 note PATCH OFF 2100 [facility] Last Admin: 10/20/17 22:55 Dose: 1 note Quetiapine Fumarate (Seroquel Tab*) 50 mg PO BEDTIME [facility] Last Admin: 10/20/17 20:37 Dose: 50 mg - Discharge Plan Discharge Plan: Outpatient Follow Up Outpatient Program: [facility]
[2017-10-21] MEDS: QUEtiapine TAB* 25 MG PO SCH (21:13)
[2017-10-21] MEDS: Nicotine Patch Removal NOTE PATCH OFF SCH (21:15)
[2017-10-22] MEDS: Gabapentin CAP(*) 100 MG PO SCH ×4 (08:53→20:57)
[2017-10-22] MEDS: Levothyroxine TAB* 88 MCG TAB PO SCH (08:54)
[2017-10-22] MEDS: DULoxetine DR CAP* 60 MG CAP.DR PO SCH (08:54)
[2017-10-22] MEDS: Nicotine PATCH 14 MG/24 HR* PATCH TRANSDERM SCH (10:24)
--- NOTE | 2017-10-22 11:43 | PN ---
MHU: Group Therapy Note - Service Type Service Type: [id number] Group Psychotherapy - Cognitive Behavioral Group Therapy ( CBT):Patient was attentive and participatory in CBT programming this morning, and remained in good behavioral control. Patient expressed positive insights regarding relevant treatment interventions and goals.
--- NOTE | 2017-10-22 14:47 | PN ---
Subjective - Subjective Date of Service: 10/22/17 Service Type: 79784 Hosp care 25 min moderate complexity Subjective: Patient lying in bed upon approach. Patient reports depressed mood, denies suicidal ideation. She reports feeling isolated and neglected by family members. 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 Patient continues to minimize alcohol use and impact. Encouraged to complete a CEE packet for self- assessment. Reina Paulino LMSW has been in contact with patient's daughter Tatyana. see SW note. Objective - Appearance Appearance: Well Developed/Nourished, Obese Dysmorphic Features: Yes Hygiene: Normal Grooming: Fairly Well Kept - Behavior Psychomotor Activities: Normal Exhibits Abnormal Movement: No - Attitude and Relatedness Attitude and Relatedness: Withdrawn Eye Contact: Good - Speech Quality: Unpressured Latencies: Normal Quantity: Appropriate - Mood Patient's Decription of Mood: "Sad" - Affect Observed Affect: Depressed Affect Consistent with: Dysphoria - Thought Process Patient's Thought Process: Coherent Thought Content: No Passive Wish, No Suicidal Planning, No Homicidal Ideation, No Paranoid Ideation - Sensorium Experiencing Hallucinations: No, Sensorium is Clear Type of Hallucinations: Visual: No, Auditory: No, Command: No - Level of Consciousness Level of Consciousness: Alert Orientation: Yes Intact, Yes Orientated to Time, Yes Orientated to Place, Yes Orientated to Person - Impulse Control Impulse Control: Tenuous - Insight and Judgement Insight and Judgement: Poor - Group Participation Particating in Group Activities: Yes - Medication Management Medication Management Adherence: Yes Assessment - Assessment Merits Inpatient Hospitalization: For Immediate Safety, For Stabilization, Consolidate Improvements Inpatient DSM-V Dx: F43.12 Clinical Impression: 62yo white female, , unemployed, domiciled who presented to ED with c/o increased depressed mood and suicidal gesture. She is an active client of [facility] due to DUI last year. Patient continues to engage in alcohol use and is likely minimizing this. She merits hospitalization for immediate safety and stabilization. Plan - Plan Treatment Plan: Name: PENELOPE DELATORRE Birthdate: 1955 [id number] continue acute intensive psychiatric treatment. may decrease to q30min and allow staff pass. continue current medications. involve patient's daughter in dc planning. refer to [facility] at discharge, recommend PROS. Continued Medication Management: Start Medication Medications: Current Medications Acetaminophen (Tylenol Tab*) 650 mg PO Q4H PRN PRN Reason: for pain; or Temp >101 F Al Hydrox/Mg Hydrox/Simethicone (Maalox Plus*) 30 ml PO Q4H PRN PRN Reason: INDIGESTION Duloxetine HCl (Cymbalta Cap*) 60 mg PO DAILY [facility] Last Admin: 10/22/17 08:54 Dose: 60 mg Gabapentin (Neurontin Cap(*)) 200 mg PO QID [facility] Last Admin: 10/22/17 12:54 Dose: 200 mg Levothyroxine Sodium (Synthroid Tab*) 88 mcg PO DAILY@0600 [facility] Last Admin: 10/22/17 08:54 Dose: 88 mcg Nicotine (Nicotine Patch 14 Mg/24 Hr*) 1 patch TRANSDERM DAILY [facility] Last Admin: 10/22/17 10:24 Dose: Not Given Pharmacy Profile Note (Nicotine Patch Removal Note*) 1 note PATCH OFF 2100 [facility] Last Admin: 10/21/17 21:15 Dose: 1 note Polyethylene Glycol/Electrolytes (Miralax*) 17 gm PO DAILY [facility] Quetiapine Fumarate (Seroquel Tab*) 50 mg PO BEDTIME [facility] Last Admin: 10/21/17 21:13 Dose: 50 mg - Discharge Plan Discharge Plan: Outpatient Follow Up Outpatient Program: [facility]
[2017-10-22] MEDS: Polyethylene Glycol 3350* 17 GM PACKET PO SCH (16:09)
[2017-10-22] MEDS: QUEtiapine TAB* 25 MG PO SCH (20:57)
[2017-10-23] MEDS: Nicotine Patch Removal NOTE PATCH OFF SCH ×2 (01:33→20:12)
[2017-10-23] MEDS: Polyethylene Glycol 3350* 17 GM PACKET PO SCH (08:29)
[2017-10-23] MEDS: Nicotine PATCH 14 MG/24 HR* PATCH TRANSDERM SCH (08:30)
[2017-10-23] MEDS: Levothyroxine TAB* 88 MCG TAB PO SCH (08:31)
[2017-10-23] MEDS: Gabapentin CAP(*) 100 MG PO SCH ×4 (08:31→20:10)
[2017-10-23] MEDS: DULoxetine DR CAP* 60 MG CAP.DR PO SCH (08:32)
--- NOTE | 2017-10-23 14:12 | PN ---
Subjective - Subjective Date of Service: 10/23/17 Service Type: [id number] Hosp care 15 min low complexity Assessment - Assessment Inpatient DSM-V Dx: F43.12 Clinical Impression: 62yo white female, , unemployed, domiciled who presented to ED with c/o increased depressed mood and suicidal gesture. She is an active client of [facility] due to DUI last year. Patient continues to engage in alcohol use and is likely minimizing this. She merits hospitalization for immediate safety and stabilization. Plan - Plan Treatment Plan: Name: PENELOPE DELATORRE Birthdate: 1955 [id number] continue acute intensive psychiatric treatment. may decrease to q30min and allow staff pass. continue current medications. involve patient's daughter in dc planning. refer to [facility] at discharge, recommend PROS. Medications: Current Medications Acetaminophen (Tylenol Tab*) 650 mg PO Q4H PRN PRN Reason: for pain; or Temp >101 F Al Hydrox/Mg Hydrox/Simethicone (Maalox Plus*) 30 ml PO Q4H PRN PRN Reason: INDIGESTION Duloxetine HCl (Cymbalta Cap*) 60 mg PO DAILY [facility] Last Admin: 10/23/17 08:32 Dose: 60 mg Gabapentin (Neurontin Cap(*)) 200 mg PO QID [facility] Last Admin: 10/23/17 08:31 Dose: 200 mg Levothyroxine Sodium (Synthroid Tab*) 88 mcg PO DAILY@0600 [facility] Last Admin: 10/23/17 08:31 Dose: 88 mcg Nicotine (Nicotine Patch 14 Mg/24 Hr*) 1 patch TRANSDERM DAILY [facility] Last Admin: 10/23/17 08:30 Dose: 1 patch Pharmacy Profile Note (Nicotine Patch Removal Note*) 1 note PATCH OFF 2100 [facility] Last Admin: 10/23/17 01:33 Dose: Not Given Polyethylene Glycol/Electrolytes (Miralax*) 17 gm PO DAILY [facility] Last Admin: 10/23/17 08:29 Dose: 17 gm Quetiapine Fumarate (Seroquel Tab*) 50 mg PO BEDTIME [facility] Last Admin: 10/22/17 20:57 Dose: 50 mg
[2017-10-23] MEDS: QUEtiapine TAB* 25 MG PO SCH (20:11)
[2017-10-24] MEDS: Levothyroxine TAB* 88 MCG TAB PO SCH (07:47)
[2017-10-24 08:59] VITALS: BP 137/70
[2017-10-24] MEDS: Nicotine PATCH 14 MG/24 HR* PATCH TRANSDERM SCH (09:21)
[2017-10-24] MEDS: DULoxetine DR CAP* 60 MG CAP.DR PO SCH (09:22)
[2017-10-24] MEDS: Gabapentin CAP(*) 100 MG PO SCH ×2 (09:22→13:16)
[2017-10-24] MEDS: Polyethylene Glycol 3350* 17 GM PACKET PO SCH (09:22)
[2017-10-24] MEDS ORDERED: Naltrexone TAB* 50 MG TAB PO SCH (13:00)
--- NOTE | 2017-10-24 13:20 | PN ---
Subjective - Subjective Date of Service: 10/23/17 Service Type: 53680 Hosp care 15 min low complexity Subjective: Patient endorses mildly depressed mood. She is more interactive with peers and attending more groups. She tends to blame external forces on her circumstances. Patient is receptive to gentle challenges in regards to accountability for her actions or lack thereof. She is receptive to suggestions for outpatient treatment. Objective - Appearance Appearance: Obese Dysmorphic Features: Yes Hygiene: Normal Grooming: Fairly Well Kept - Behavior Psychomotor Activities: Normal Exhibits Abnormal Movement: No - Attitude and Relatedness Attitude and Relatedness: Cooperative Eye Contact: Good - Speech Quality: Unpressured Latencies: Normal Quantity: Appropriate - Mood Patient's Decription of Mood: "Okay" - Affect Observed Affect: Depressed Affect Consistent with: Dysphoria - Thought Process Patient's Thought Process: Coherent, Goal Directed Thought Content: No Passive Wish, No Suicidal Planning, No Homicidal Ideation, No Paranoid Ideation - Sensorium Experiencing Hallucinations: No, Sensorium is Clear Type of Hallucinations: Visual: No, Auditory: No, Command: No - Level of Consciousness Level of Consciousness: Alert Orientation: Yes Intact, Yes Orientated to Time, Yes Orientated to Place, Yes Orientated to Person - Impulse Control Impulse Control: Intact - Insight and Judgement Insight and Judgement: Fair - Group Participation Particating in Group Activities: Yes - Medication Management Medication Management Adherence: Yes Assessment - Assessment Merits Inpatient Hospitalization: For Immediate Safety, For Stabilization, For Discharge Planning Inpatient DSM-V Dx: F43.12 Clinical Impression: 62yo white female, , unemployed, domiciled who presented to ED with c/o increased depressed mood and suicidal gesture. She is an active client of [facility] due to DUI last year. Patient continues to engage in alcohol use and is likely minimizing this. She merits hospitalization for immediate safety and stabilization. Plan - Plan Treatment Plan: Name: PENELOPE DELATORRE Birthdate: 1955 [id number] continue acute intensive psychiatric treatment. may decrease to q30min and allow staff pass. continue current medications. involve patient's daughter in dc planning. refer to [facility] at discharge, recommend [facility]. Continued Medication Management: Start Medication Medications: Current Medications Acetaminophen (Tylenol Tab*) 650 mg PO Q4H PRN PRN Reason: for pain; or Temp >101 F Al Hydrox/Mg Hydrox/Simethicone (Maalox Plus*) 30 ml PO Q4H PRN PRN Reason: INDIGESTION Duloxetine HCl (Cymbalta Cap*) 60 mg PO DAILY [facility] Last Admin: 10/24/17 09:22 Dose: 60 mg Gabapentin (Neurontin Cap(*)) 200 mg PO QID [facility] Last Admin: 10/24/17 09:22 Dose: 200 mg Levothyroxine Sodium (Synthroid Tab*) 88 mcg PO DAILY@0600 [facility] Last Admin: 10/24/17 07:47 Dose: 88 mcg Naltrexone HCl (Naltrexone Tab*) 50 mg PO DAILY WITH MEAL [facility]; Protocol Nicotine (Nicotine Patch 14 Mg/24 Hr*) 1 patch TRANSDERM DAILY [facility] Last Admin: 10/24/17 09:21 Dose: 1 patch Pharmacy Profile Note (Nicotine Patch Removal Note*) 1 note PATCH OFF 2100 [facility] Last Admin: 10/23/17 20:12 Dose: 1 note Polyethylene Glycol/Electrolytes (Miralax*) 17 gm PO DAILY [facility] Last Admin: 10/24/17 09:22 Dose: 17 gm Quetiapine Fumarate (Seroquel Tab*) 50 mg PO BEDTIME [facility] Last Admin: 10/23/17 20:11 Dose: 50 mg - Discharge Plan Discharge Plan: Outpatient Follow Up Outpatient Program: [facility]
--- NOTE | 2017-10-24 15:56 | DS ---
Subjective - Subjective Service Types: [id number] [facility] Day Mgmt simple under 30 min Discharge Date: 10/24/17 Subjective: Patient reports readiness for discharge. We discuss motivations and barriers to continuing with outpatient treatment. She denies SI or SIB urges. She has tolerated medication changes and benefitted from programming and milieu therapy. Objective - Appearance Appearance: Well Developed/Nourished Dysmorphic Features: No Hygiene: Normal Grooming: Fairly Well Kept - Behavior Psychomotor Activities: Normal Exhibits Abnormal Movement: No - Attitude and Relatedness Attitude and Relatedness: Cooperative Eye Contact: Good - Speech Quality: Unpressured Latencies: Normal Quantity: Appropriate - Mood Patient's Decription of Mood: "Okay" - Affect Observed Affect: Good Affect Consistent with: Euthymia - Thought Process Patient's Thought Process: Coherent, Goal Directed Thought Content: No Passive Wish, No Suicidal Planning, No Homicidal Ideation, No Paranoid Ideation - Sensorium Experiencing Hallucinations: No, Sensorium is Clear Type of Hallucinations: Visual: No, Auditory: No, Command: No - Level of Consciousness Level of Consciousness: Alert Orientation: Yes Intact, Yes Orientated to Time, Yes Orientated to Place, Yes Orientated to Person - Impulse Control Impulse Control: Intact - Insight and Judgement Insight and Judgement: Fair - Group Participation Particating in Group Activities: Yes - Medication Management Medication Management Adherence: Yes Treatment Course & Assessment Clinical Course & Impression: 62yo white female, , unemployed, domiciled who presented to ED with c/o increased depressed mood and suicidal gesture. She is an active client of [facility] due to DUI last year. 10/19/17: Patient denies side effect from medication changes. She endorses sad mood and loneliness. She states she has been sleeping well. Patient reports calling her daughter to ask for clothing and toiletries and was told that she does not want to help. Pt states "she's pissed at me." Patient signed GIANNA and allows brief writer to speak with daughter to attempt to facilitate communication and a family meeting. Freelance Displayer left with number from patient's phone: . Pt goes on to describe how she has cared for others her entire life and not herself. She states frustration that no one from her family is helping her. She eludes to a friend in [place] she could call. Freelance Displayer encourages her to reach out and she states "I'll think about it." She brings up topic of being a recovering alcoholic. I ask what this means and she reports no longer drinking. Gently challenged her on positive alcohol upon arrival. 10/20/17:Ronda reports feeling sad, hurt and upset that neither one of her 3 children has called since admission. She endorses improved appetite and sleep, denies SI and contracts for safety. She is visible in the milieu and adherent to unit's routines. 10/22/17: Patient lying in bed upon approach. Patient reports depressed mood, denies suicidal ideation. She reports feeling isolated and neglected by family members. 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 Patient continues to minimize alcohol use and impact. Encouraged to complete a CEE packet for self- assessment. She denied need to do so. 10/23/17: Patient endorses mildly depressed mood. She is more interactive with peers and attending more groups. She tends to blame external forces on her circumstances. Patient is receptive to gentle challenges in regards to accountability for her actions or lack thereof. She is receptive to suggestions for outpatient treatment. Merits Inpatient Hospitalization: No Clear for Discharge: Adequate Clinical Respons, Acceptable Safety Profile Inpatient DSM-V Dx: F43.12 Discharge Planning - Discharge Planning Discharge Plan: Outpatient Follow Up Outpatient Program: [facility] Recommendations for Continuing Care: Medication Management, Psychotherapy, Substance Abuse Counseling Medications: Levothyroxine TAB* [Synthroid 88 MCG TAB*] 88 mcg PO DAILY 12/29/11 [History Confirmed 10/17/17] QUEtiapine TAB* [Seroquel 25 MG TAB*] 50 mg PO BEDTIME #60 tab 05/22/16 [Rx Confirmed 10/17/17] DULoxetine CAP* [Cymbalta CAP*] 60 mg PO DAILY #30 chip. 10/24/17 [Rx] Gabapentin CAP(*) [Neurontin 100 mg CAP(*)] 200 mg PO QID cap 10/24/17 [Rx] Levothyroxine TAB* [Synthroid 88 MCG TAB*] 88 mcg PO DAILY@0600 tab 10/24/17 [ Rx] Naltrexone TAB* 50 mg PO DAILY #30 tab 10/24/17 [Rx] QUEtiapine TAB* [Seroquel 25 MG TAB*] 50 mg PO BEDTIME #60 tab 10/24/17 [Rx] Discharge Planning: Prescriptions provided for discharge [X] Yes [] No Follow up care details: [facility]: intake on November 01 at 5:30 pm with Beata MCMAHON: intake on Tuesday 10/31 at 10:30 am with Monica Franco Patient response to discharge plan: [X] eager for discharge [] agreeable with discharge plan [] ambivalent about discharge [] disagrees with discharge today
== END 2017-10-24 13:25 | disposition home or self-care (01) | DRG 755 ==
LOC: ED 20:23 → BSU 10-17 16:20
PROVIDERS: ADMIT Psychiatry & Neurology Psychiatry; ATTEND Psychiatry & Neurology Psychiatry
DX: F43.12 Post-traumatic stress disorder, chronic (principal); R45.851 Suicidal ideations; F17.210 Nicotine dependence, cigarettes, uncomplicated; F42.9 Obsessive-compulsive disorder, unspecified; E03.9 Hypothyroidism, unspecified; F10.10 Alcohol abuse, uncomplicated; Y90.3 Blood alcohol level of 60-79 mg/100 ml; Z87.820 Personal history of traumatic brain injury; Z79.899 Other long term (current) drug therapy; Z88.5 Allergy status to narcotic agent; Z88.2 Allergy status to sulfonamides; Z81.1 Family history of alcohol abuse and dependence; Z81.8 Family history of other mental and behavioral disorders
CPT/HCPCS: 36415; 80053; 80061; 80307; 80320; 80329; 81003; 83036; 84443; 85025; 90853; 99222; 99231; 99232; 99238; 99284; A9270-GY; G0480

== ENCOUNTER → 2017-12-31 16:43 | Emergency (ER) | payer OTHER ==
[2017-12-31 16:56] VITALS: BP 116/71
== END | disposition left against medical advice (07) ==
LOC: ED 16:43
DX: Z76.0 Encounter for issue of repeat prescription (principal); Z53.21 Procedure and treatment not carried out due to patient leaving prior to being seen by health care provider

== ENCOUNTER 2018-01-11 15:42 | Emergency (ER) | payer OTHER ==
[2018-01-11 15:55] VITALS: BP 95/62
[2018-01-11] MEDS ORDERED: Ibuprofen TAB* 600 MG PO ONE (16:16)
--- NOTE | 2018-01-11 16:21 | UC ---
Elbow Pain - HPI Summary HPI Summary: 62 yo female with left elbow pain s/p fall yesterday She is right handed unable to straighten elbow - History of Current Complaint Chief Complaint: UCUpperExtremity Stated Complaint: L ELBOW INJURY Time Seen by Provider: 01/11/18 16:09 Hx Obtained From: Patient Hx Last Menstrual Period: 5 yrs Onset/Duration: Hours Severity Currently: Severe Pain Intensity: 10 - if she moves it Pain Scale Used: 0-10 Numeric Location Of Pain: Is Discrete @ - olecranon, Radiates To - wrist Character: Throbbing, Spasmodic Aggravating Factor(s): Movement, Pulling, Twisting Alleviating Factor(s): Rest Associated Signs And Symptoms: Positive: Swelling - Allergies/Home Medications Allergies/Adverse Reactions: Allergies Allergy/AdvReac Type Severity Reaction Status Date / Time morphine Allergy Swelling Verified 01/11/18 15:56 Of Face,Lips,& Throat Sulfa (Sulfonamide Allergy Itching Verified 01/11/18 15:56 Antibiotics) PMH/Surg Hx/FS Hx/Imm Hx Endocrine History: Thyroid Disease, Hypothyroidism - Surgical History Surgical History: None - Family History Known Family History: Positive: Hypertension, Other - no hx suicide; kidney disease in her daughter - Social History Alcohol Use: None Substance Use Type: None Smoking Status (MU): Current Every Day Smoker Type: Cigarettes Amount Used/How Often: 1/2 PPD Length of Time of Smoking/Using Tobacco: "years" Have You Smoked in the Last Year: Yes Household Exposure Type: Cigarettes - Immunization History Most Recent Influenza Vaccination: never Most Recent Tetanus Shot: utd Most Recent Pneumonia Vaccination: never Review of Systems All Other Systems Reviewed And Are Negative: Yes Constitutional: Positive: Negative Skin: Positive: Negative Eyes: Positive: Negative ENT: Positive: Negative Respiratory: Positive: Negative Cardiovascular: Positive: Negative Gastrointestinal: Positive: Negative Genitourinary: Positive: Negative Motor: Positive: Negative Neurovascular: Positive: Negative Musculoskeletal: Positive: Arthralgia Neurological: Positive: Negative Psychological: Positive: Negative Physical Exam Triage Information Reviewed: Yes Appearance: Well-Appearing, No Pain Distress, Well-Nourished Vital Signs: Initial Vital Signs Temp 97.9 F 01/11/18 15:51 Pulse 54 01/11/18 15:51 Resp 16 01/11/18 15:51 BP 95/62 01/11/18 15:51 Pulse Ox 100 01/11/18 15:51 Vital Signs Reviewed: Yes Eyes: Positive: Conjunctiva Clear ENT: Positive: Pharynx normal. Negative: Nasal congestion, Nasal drainage, Tonsillar swelling, Tonsillar exudate, Hoarse voice, Sinus tenderness Neck: Positive: Supple, Nontender, No Lymphadenopathy Respiratory: Positive: Chest non-tender, Lungs clear, Normal breath sounds Cardiovascular: Positive: RRR, No Murmur Musculoskeletal: Positive: Other: - see image Neurological: Positive: Alert Psychological Exam: Normal Skin Exam: Normal Diagnostics - Radiology No standard instances Radiology Interpretation Completed By: Radiologist Summary of Radiographic Findings: no fat pad, no fx Elbow Pain Course/Dx - Differential Dx/Diagnosis Provider Diagnoses: left elbow contusion Discharge - Sign-Out/Discharge Documenting (check all that apply): Patient Departure All imaging exams completed and their final reports reviewed: Yes - Discharge Plan Condition: Stable Disposition: HOME Prescriptions: HYDROcodone/ACETAMIN 5-325 MG* [[place] 5-325 TAB*] 1 tab PO Q4H PRN #8 tab MDD 4 PRN Reason: Pain Patient Education Materials: Contusion in Adults (ED), How to Use a Sling (ED) Referrals: Opal Capone PA [Primary Care Provider] - 5 Days (if not better) Additional Instructions: rest ice sling aleve 1-2 twice daily - Billing Disposition and Condition Condition: STABLE Disposition: Home Images Front/Back of Body, Lg ([place]): 1 - tender, unable to extent, swollen, distal n/v intact
== END 2018-01-11 17:11 | disposition home or self-care (01) ==
LOC: UCEAST 15:42
DX: S50.02XA Contusion of left elbow, initial encounter (principal); F17.210 Nicotine dependence, cigarettes, uncomplicated; Z88.5 Allergy status to narcotic agent; Z88.2 Allergy status to sulfonamides; W19.XXXA Unspecified fall, initial encounter; Y92.9 Unspecified place or not applicable
CPT/HCPCS: 99213; A9270-GY; G0463

== ENCOUNTER → 2018-01-14 10:27 | Emergency (ER) | payer OTHER ==
[~2018-01-14 10:27] MED LIST: Ibuprofen TAB* 600 MG PO ONE; oxyCODONE/Acetamin 5/325 MG* TAB PO ONE
[2018-01-14 10:34] VITALS: BP 172/98
--- NOTE | 2018-01-14 11:01 | ED ---
Upper Extremity Pain - HPI Summary HPI Summary: Patient is a 62-year-old female who presents emergency department for a left elbow injury that occurred just 3 days ago. Patient states she tripped going on the steps and injured her left elbow. No other injuries were sustained. She states she went to [facility] and had an x-ray which was negative. Patient states she the weekend elbow has become more painful and she is having difficulty moving and using her left arm secondary to pain. She denies numbness or tingling. Symptoms are mild in severity. Patient states she was prescribed hydrocodone which did not help with her pain. Has not taken any anti -inflammatories. - History of Current Complaint Chief Complaint: EDExtremityUpper Stated Complaint: FALL ON 01/11 LT ELBOW PAIN Time Seen by Provider: 01/14/18 10:37 Hx Obtained From: Patient Hx Last Menstrual Period: 5 yrs - Allergies/Home Medications Allergies/Adverse Reactions: Allergies Allergy/AdvReac Type Severity Reaction Status Date / Time morphine Allergy Swelling Verified 01/14/18 10:34 Of Face,Lips,& Throat Sulfa (Sulfonamide Allergy Itching Verified 01/14/18 10:34 Antibiotics) Home Medications: Home Medications FLUoxetine CAP* [PROzac CAP*] 40 mg PO DAILY 01/14/18 [History Confirmed ] Gabapentin CAP(*) [Neurontin 100 mg CAP(*)] 200 - 300 mg PO QID 01/14/18 [ History Confirmed 01/14/18] PMH/Surg Hx/FS Hx/Imm Hx Previously Healthy: Yes Endocrine/Hematology History: Reports: Hx Thyroid Disease - Hypothyroid Cardiovascular History: Denies: Hx Pacemaker/ICD Sensory History: Reports: Hx Contacts or Glasses Denies: Hx Hearing Aid Opthamlomology History: Reports: Hx Contacts or Glasses Psychiatric History: Reports: Hx Depression, Hx Community Mental Health Tx - distant past, Hx Substance Abuse, Other Psychiatric Issues/Disorders - OCD Denies: Hx Eating Disorder, Hx Panic Disorder, Hx of Violent Episodes Against Others Infectious Disease History: No Infectious Disease History: Denies: Traveled Outside the [place] in Last 30 Days - Family History Known Family History: Positive: Hypertension, Other - no hx suicide; kidney disease in her daughter - Social History Occupation: Unemployed Lives: With Family Alcohol Use: None Substance Use Type: Reports: None Smoking Status (MU): Current Every Day Smoker Type: Cigarettes Amount Used/How Often: 1/2 PPD Length of Time of Smoking/Using Tobacco: "years" Have You Smoked in the Last Year: Yes Review of Systems Positive: Other - Right elbow pain Neurological: Negative Negative: Weakness, Paresthesia, Numbness All Other Systems Reviewed And Are Negative: Yes Physical Exam Triage Information Reviewed: Yes Vital Signs On Initial Exam: Initial Vitals Temp Pulse Resp BP Pulse Ox 97.2 F 48 18 172/98 98 01/14/18 10:31 01/14/18 10:31 01/14/18 10:31 01/14/18 10:31 01/14/18 10:31 Vital Signs Reviewed: Yes Appearance: Positive: Well-Appearing - Pt. sitting on bed in NAD. Skin: Positive: Warm, Dry Head/Face: Positive: Normal Head/Face Inspection Eyes: Positive: Normal, EOMI Neck: Positive: Supple Musculoskeletal: Positive: Other - Good left radial pulse. No sensory deficits. Pain over latera right elbow and pain with extension. No proximal shoulder and distal wrist pain. Can pronate and supinate with pain. Neurological: Positive: Normal, CN Intact II-III Psychiatric: Positive: Affect/Mood Appropriate Procedures - Splinting Left Upper Extremity Hand-Made Type: orthoglass Splint: Long arm Pre-Proc Neuro Vasc Exam: normal Post-Proc Neuro Vasc Exam: normal Diagnostics - Vital Signs Vital Signs Temp Pulse Resp BP Pulse Ox 01/14/18 10:31 97.2 F 48 18 172/98 98 - Laboratory Lab Statement: Any lab studies that have been ordered have been reviewed, and results considered in the medical decision making process. Course/Dx - Course Course Of Treatment: Patient presenting for ongoing left elbow pain after fall 3 days ago. Neurovascularly intact. No wounds. Motrin ordered for pain. I did repeat x-ray today and radiologist is seeing a possible tiny avulsion fracture fragment arising from the coronoid process of ulna, age indeterminate. Given patient's pain and recent injury Will splint for suspected avulsion fracture. Elbow was splinted. Patient states she has a splint at home she can use. Advised to call orthopedic clinic today for close follow-up appointment. To ice and elevate. Naproxen prescribed for pain. Return to the ER if symptoms change or worsen. Patient understands and agrees with plan. - Diagnoses Differential Diagnosis/HQI/PQRI: Positive: Contusion, Fracture (Closed), Strain Provider Diagnoses: Elbow fracture Discharge - Sign-Out/Discharge Documenting (check all that apply): Patient Departure - Discharge Plan Condition: Good Disposition: HOME Prescriptions: Naproxen [Naproxen 500 mg tab] 500 mg PO BID #20 tablet Patient Education Materials: Elbow Fracture (ED) Referrals: Opal Capone PA [Physician Derrick Hand] - Jennifer Baum MD [Medical Doctor] - Additional Instructions: Call Dr. Baum's office today to schedule a follow up appointment Keep splint in place Use sling for support when you get home Ice and elevate Naproxen as directed for pain Return to ER if symptoms change or worsen - Billing Disposition and Condition Condition: GOOD Disposition: Home
== END | disposition home or self-care (01) ==
LOC: ED 10:27
DX: S59.902A Unspecified injury of left elbow, initial encounter (principal); W10.2XXA Fall (on)(from) incline, initial encounter; Y92.9 Unspecified place or not applicable; F32.9 Major depressive disorder, single episode, unspecified; F42.9 Obsessive-compulsive disorder, unspecified; Z88.5 Allergy status to narcotic agent; Z88.2 Allergy status to sulfonamides; F17.210 Nicotine dependence, cigarettes, uncomplicated
CPT/HCPCS: 99282; A9270-GY

== ENCOUNTER 2018-04-12 10:40 | Emergency (ER) | payer OTHER ==
[2018-04-12] MEDS ORDERED: NS 0.9% 1000 ML** 1,000 ML IV ONE (11:11)
[2018-04-12] MEDS ORDERED: methylPREDNISolone 125 MG* 2 ML VIAL IV ONE (11:11)
[2018-04-12] MEDS ORDERED: Albuterol/Ipratropium NEB.SOL* Albuterol 2.5 MG/Ipratropium 0.5 MG 3 ML INH ONE (11:11)
[2018-04-12] MEDS ORDERED: guaiFENesin/CODIEN 100MG-10MG* 5 ML UDC PO ONE (11:11)
--- NOTE | 2018-04-12 11:20 | ED ---
Respiratory - HPI Summary HPI Summary: Patient is a 62 y/o F presenting to ED with complaints of cough productive of green phlegm, SOB, fatigue for the past month. She denies chest pain, fever, sick contacts at home and work. PMHx of hypothyroidism. Per triage note, "[facility] and given amoxicillin apox 1 month ago, denies relief." She denies cigarette, alcohol, and drug usage. On triage, pain is denied. Nothing is noted to aggravate/alleviate Sx. Home medications and allergies are reviewed. - History of Current Complaint Chief Complaint: EDFluSymptoms Stated Complaint: COUGH/FEVER/CHILLS Hx Obtained From: Patient Onset/Duration: Lasting Weeks - past month, Still Present Timing: Constant Current Severity: None Pain Intensity: 0 Character: Cough (Productive) Sputum Color: Green Aggravating Factor(s): Nothing Alleviating Factor(s): Nothing Associated Signs and Symptoms: SOB - Allergy/Home Medications Allergies/Adverse Reactions: Allergies Allergy/AdvReac Type Severity Reaction Status Date / Time morphine Allergy Swelling Verified 01/14/18 10:34 Of Face,Lips,& Throat Sulfa (Sulfonamide Allergy Itching Verified 01/14/18 10:34 Antibiotics) PMH/Surg Hx/FS Hx/Imm Hx Endocrine/Hematology History: Reports: Hx Thyroid Disease - Hypothyroid Cardiovascular History: Denies: Hx Pacemaker/ICD Sensory History: Reports: Hx Contacts or Glasses Denies: Hx Hearing Aid Opthamlomology History: Reports: Hx Contacts or Glasses Psychiatric History: Reports: Hx Depression, Hx Community Mental Health Tx - distant past, Hx Substance Abuse, Other Psychiatric Issues/Disorders - OCD Denies: Hx Eating Disorder, Hx Panic Disorder, Hx of Violent Episodes Against Others Infectious Disease History: No Infectious Disease History: Denies: Traveled Outside the [place] in Last 30 Days - Family History Known Family History: Positive: Hypertension, Other - no hx suicide; kidney disease in her daughter - Social History Alcohol Use: None Substance Use Type: Reports: None Smoking Status (MU): Current Every Day Smoker Type: Cigarettes Amount Used/How Often: 1/2 PPD Length of Time of Smoking/Using Tobacco: "years" Have You Smoked in the Last Year: Yes Review of Systems Positive: Fatigue. Negative: Fever Negative: Chest Pain Positive: Shortness Of Breath, Cough All Other Systems Reviewed And Are Negative: Yes Physical Exam - Summary Physical Exam Summary: VITAL SIGNS: Reviewed. GENERAL: Patient is a well-developed and nourished female who is lying comfortable in the stretcher. Patient is not in any acute respiratory distress. HEAD AND FACE: No signs of trauma. No ecchymosis, hematomas or skull depressions. No sinus tenderness. EYES: PERRLA, EOMI x 2, No injected conjunctiva, no nystagmus. EARS: Hearing grossly intact. Ear canals and tympanic membranes are within normal limits. MOUTH: Oropharynx within normal limits. NECK: Supple, trachea is midline, no adenopathy, no JVD, no carotid bruit, no c- spine tenderness, neck with full ROM. CHEST: Symmetric, no tenderness at palpation LUNGS: Active dry cough, wheezes and coarse breath sounds bilaterally. CVS: Regular rate and rhythm, S1 and S2 present, no murmurs or gallops appreciated. ABDOMEN: Soft, non-tender. No signs of distention. No rebound no guarding, and no masses palpated. Bowel sounds are normal. EXTREMITIES: FROM in all major joints, no edema, no cyanosis or clubbing. NEURO: Alert and oriented x 3. No acute neurological deficits. Speech is normal and follows commands. SKIN: Dry and warm Triage Information Reviewed: Yes Vital Signs On Initial Exam: Initial Vitals Temp Pulse Resp BP Pulse Ox 98.8 F 73 16 125/73 95 04/12/18 10:42 04/12/18 10:42 04/12/18 10:42 04/12/18 10:42 04/12/18 10:42 Vital Signs Reviewed: Yes Diagnostics - Vital Signs Vital Signs Temp Pulse Resp BP Pulse Ox 04/12/18 10:42 98.8 F 73 16 125/73 95 - Laboratory Result Diagrams: 04/12/18 11:22 04/12/18 11:22 Lab Statement: Any lab studies that have been ordered have been reviewed, and results considered in the medical decision making process. - Radiology CXR Radiology Interpretation Completed By: Radiologist Summary of Radiographic Findings: IMPRESSION: FINDINGS SUGGESTIVE OF COPD, NO EVIDENCE FOR ACUTE FINDING. THIS REPORT WAS REVIEWED BY ED PHYSICIAN. - EKG 1145 Cardiac Rate: NL - rate of 64 BPM EKG Rhythm: Sinus Rhythm Summary of EKG Findings: EKG showed sinus rhythm with rate of 64 BPM, no ST elevations. Re-Evaluation - Re-Evaluation First Eval Re-Evaluation Time: 13:52 Change: Improved Comment: At this point the patient is feeling better, she does not have any wheezing, the cough has subsided and the patient is feeling better. The patient is not hypoxic or tachycardic and there Wells criteria is equal to 0 therefore I have no suspicion for a PE. Since the patients symptoms have improved the patient will be discharged home with follow-up with primary care physician. The patient will be given a prescription for albuterol, prednisone and Robitussin. I discussed all the findings and test results with the patient. Patient was instructed to return to the emergency room immediately if any of the symptoms return or worsens. Plan of care was discussed with the patient and understands and agrees. All questions were answered at patient satisfaction. There were no further complaints or concerns. Lung exam before discharge: CTA B/L. Good air exchange. No wheezing or crackles heard. CVS: S1 and S2 present. No murmurs appreciated. Patient is alert and oriented x 3. Patient is hemodynamically stable. Patient will be discharged home with follow up PCP in the next 2-3 days Disposition - Course Assessment/Plan: Patient is a 62 y/o F presenting to ED with complaints of cough productive of green phlegm, SOB, fatigue for the past month. She denies chest pain, fever, sick contacts at home and work. PMHx of hypothyroidism. Per triage note, "Was [facility] and given amoxicillin apox 1 month ago, denies relief." She denies cigarette, alcohol, and drug usage. On triage, pain is denied. Nothing is noted to aggravate/alleviate Sx. Home medications and allergies are reviewed. Blood work without any significant abnormality except for carbon dioxide of 21 alkaline phosphatase is 115, urinalysis is negative for UTI, and influenza A and B is negative. Chest x-ray impression: Findings suggestive of COPD, no evidence for acute findings. In the ED course the patient was wheezing therefore she was given DuoNebs with Solu-Medrol. The patient was given Robitussin and the patients significantly improved. At this point the patient is feeling better, she does not have any wheezing, the cough has subsided and the patient is feeling better. The patient is not hypoxic or tachycardic and there Wells criteria is equal to 0 therefore I have no suspicion for a PE. Since the patients symptoms have improved the patient will be discharged home with follow-up with primary care physician. The patient will be given a prescription for albuterol, prednisone and Robitussin. I discussed all the findings and test results with the patient. Patient was instructed to return to the emergency room immediately if any of the symptoms return or worsens. Plan of care was discussed with the patient and understands and agrees. All questions were answered at patient satisfaction. There were no further complaints or concerns. Lung exam before discharge: CTA B/L. Good air exchange. No wheezing or crackles heard. CVS: S1 and S2 present. No murmurs appreciated. Patient is alert and oriented x 3. Patient is hemodynamically stable. Patient will be discharged home with follow up PCP in the next 2-3 days - Differential Dx - Cardiopulmonary Differential Diagnoses - Cardiopulmonary: Bronchitis, CHF, Exacerbation Of COPD , Influenza - Diagnoses Provider Diagnoses: COPD (chronic obstructive pulmonary disease), Cough Discharge - Sign-Out/Discharge Documenting (check all that apply): Patient Departure - discharge Patient Received Moderate/Deep Sedation with Procedure: No - NO PROCEDURES DONE - Discharge Plan Condition: Stable Disposition: HOME Prescriptions: Albuterol HFA INHALER* [Ventolin HFA Inhaler*] 1 - 2 puff INH Q4H PRN #1 mdi PRN Reason: Cough guaiFENesin/CODIEN 100MG-10MG* [Robitussin AC 100Mg-10Mg*] 10 ml PO Q6H PRN # 160 ml MDD 40 ml PRN Reason: Cough predniSONE TAB* [Deltasone 20 MG TAB*] 40 mg PO DAILY #8 tab Patient Education Materials: COPD (Chronic Obstructive Pulmonary Disease) (ED) , Acute Cough (ED) Referrals: [facility] [Outside] - 3 Days Additional Instructions: RETURN TO EMERGENCY DEPARTMENT FOR ANY NEW OR WORSENING SYMPTOMS. FOLLOW UP WITH PRIMARY CARE PHYSICIAN WITHIN THREE DAYS. - Billing Disposition and Condition Condition: STABLE Disposition: Home - Attestation Statements Document Initiated by Scribe: Yes Documenting Scribe: THOMAS CALVILLO Provider For Whom Chris is Documenting (Include Credential): VICKY HOGAN MD Scribe Attestation: THOMAS Plummer , scribed for VICKY HOGAN MD on 04/13/18 at 1109. Scribe Documentation Reviewed: Yes Provider Attestation: The documentation as recorded by the scribe, THOMAS CALVILLO accurately reflects the service I personally performed and the decisions made by me, VICKY HOGAN MD Status of Chris Document: Viewed
[2018-04-12 11:33] LABS: ABS Basophils 0.1 10^3/ul (0-0.2); ABS Eosinophils 0.3 10^3/ul (0-0.6); ABS Lymphocytes 2.7 10^3/ul (1.0-4.8); ABS Monocytes 0.6 10^3/ul (0-0.8); ABS Neutrophils 6.9 10^3/ul (1.5-7.7); ABS Nucleated RBC 0 10^3/ul; Eosinophil % 3.2 %; Hematocrit 46 % (35-47); Hemoglobin 15.2 g/dl (12.0-16.0); Lymphocyte % 25.5 %; Mean Corpuscular HGB Conc 33 g/dl (31-36); Mean Corpuscular Hemoglobin 30 pg (27-31); Mean Corpuscular Volume 92 fL (80-97); Mean Platelet Volume 8.1 fL (7.4-10.4); Nucleated Red Blood Cells % 0.1; Platelet Count 316 10^3/ul (150-450); Red Blood Count 5.05 10^6/ul (4.00-5.40); Red Cell Distribution Width 14 % (10.5-15); White Blood Count 10.7 10^3/ul (3.5-10.8)
[2018-04-12 11:57] LABS: Albumin 4.4 g/dL (3.2-5.2); Albumin/Globulin Ratio 1.6 (1-3); BUN/Creatinine Ratio 9.7 (8-20); C Reactive Protein 4.48 mg/L (<8.01); EGFR African American 73.7 (>60); EGFR Non-African American 60.9 (>60); Globulin 2.8 g/dL (2-4); Potassium 4.6 mmol/L (3.5-5.0); Total Bilirubin 0.4 mg/dL (0.2-1.0); Total Protein 7.2 g/dL (6.4-8.9)
[2018-04-12 12:34] LABS: Urine Appearance Clear; Urine Bilirubin Negative (Negative); Urine Blood Negative (Negative); Urine Color Yellow; Urine Glucose Negative (Negative); Urine Ketones Negative (Negative); Urine Nitrite Negative (Negative); Urine Protein Negative (Negative); Urine Specific Gravity 1.009 (1.010-1.030); Urine Urobilinogen Negative (Negative)
[2018-04-12 12:36] LABS: Influenza A Molecular NEGATIVE (Negative); Influenza B Molecular NEGATIVE (Negative)
[2018-04-12 14:03] VITALS: BP 107/59
== END 2018-04-12 14:03 | disposition home or self-care (01) ==
LOC: ED 10:40
DX: J44.9 Chronic obstructive pulmonary disease, unspecified (principal); R05 Cough; R53.83 Other fatigue; Z88.5 Allergy status to narcotic agent; Z88.2 Allergy status to sulfonamides; F17.210 Nicotine dependence, cigarettes, uncomplicated
CPT/HCPCS: 36415; 71046; 80053; 81003; 83605; 83880; 84484; 85025; 86140; 87040; 93005; 96374; 99283; A9270-GY; J2930

== ENCOUNTER 2018-09-13 15:44 | Emergency (ER) | payer OTHER ==
[2018-09-13] MEDS ORDERED: Ketorolac *IM* INJ* 60 MG/2 ML VIAL IM ONE (17:28)
--- NOTE | 2018-09-13 17:29 | ED ---
Upper Extremity Pain - HPI Summary HPI Summary: A 63 y/o female presents to [facility] with a chief complaint of left shoulder and forearm pain after a fall at the end of May 2018. She said that she did not want to go to the doctor but her pain kept increasing and now she is in excruciating pain. She rates her pain as a 10/10 in severity. She says that when she fell she landed on her left shoulder and forearm and now she has decreased ROM in her left arm. - History of Current Complaint Chief Complaint: EDExtremityUpper Stated Complaint: LT SHOULDER INJURY PER PT Time Seen by Provider: 09/13/18 17:20 Hx Obtained From: Patient Hx Last Menstrual Period: 5 yrs Mechanism Of Injury: Fall From A Standing Position Onset/Duration: Started Weeks Ago Timing: Constant Severity Initially: Moderate Severity Currently: Severe Pain Location: Shoulder - left, Forearm - left Character: Unable to Describe Aggravating Factor(s): Movement Alleviating Factor(s): Nothing Associated Signs & Symptoms: Negative: Fever - Allergies/Home Medications Allergies/Adverse Reactions: Allergies Allergy/AdvReac Type Severity Reaction Status Date / Time morphine Allergy Swelling Verified 09/13/18 16:12 Of Face,Lips,& Throat Sulfa (Sulfonamide Allergy Itching Verified 09/13/18 16:12 Antibiotics) PMH/Surg Hx/FS Hx/Imm Hx Endocrine/Hematology History: Reports: Hx Thyroid Disease - Hypothyroid Cardiovascular History: Denies: Hx Pacemaker/ICD Sensory History: Reports: Hx Contacts or Glasses Denies: Hx Hearing Aid Opthamlomology History: Reports: Hx Contacts or Glasses Psychiatric History: Reports: Hx Depression, Hx Community Mental Health Tx - distant past, Hx Substance Abuse, Other Psychiatric Issues/Disorders - OCD Denies: Hx Eating Disorder, Hx Panic Disorder, Hx of Violent Episodes Against Others Infectious Disease History: No Infectious Disease History: Denies: Traveled Outside the [place] in Last 30 Days - Family History Known Family History: Positive: Hypertension, Other - no hx suicide; kidney disease in her daughter - Social History Alcohol Use: None Substance Use Type: Reports: None Smoking Status (MU): Current Every Day Smoker Type: Cigarettes Amount Used/How Often: 1/2 PPD Length of Time of Smoking/Using Tobacco: "years" Have You Smoked in the Last Year: Yes Review of Systems Negative: Fever Positive: Arthralgia - left shoulder, Myalgia - left forearm All Other Systems Reviewed And Are Negative: Yes Physical Exam - Summary Physical Exam Summary: VITAL SIGNS: Reviewed. GENERAL: Patient is a well-developed and nourished FEMALE who is lying comfortable in the stretcher. Patient is not in any acute respiratory distress. HEAD AND FACE: No signs of trauma. No ecchymosis, hematomas or skull depressions. No sinus tenderness. EYES: PERRLA, EOMI x 2, No injected conjunctiva, no nystagmus. EARS: Hearing grossly intact. Ear canals and tympanic membranes are within normal limits. MOUTH: Oropharynx within normal limits. NECK: Supple, trachea is midline, no adenopathy, no JVD, no carotid bruit, no c- spine tenderness, neck with full ROM. CHEST: Symmetric, no tenderness at palpation. LUNGS: Clear to auscultation bilaterally. No wheezing or crackles. CVS: Regular rate and rhythm, S1 and S2 present, no murmurs or gallops appreciated. ABDOMEN: Soft, non-tender. No signs of distention. No rebound, no guarding, and no masses palpated. Bowel sounds are normal. EXTREMITIES: Decreased ROM left shoulder and elbow, no deformity, no hematoma, no ecchymosis, good pulses and good capillary refill. NEURO: Alert and oriented x 3. No acute neurological deficits. Speech is normal and follows commands. SKIN: Dry and warm. Triage Information Reviewed: Yes Vital Signs On Initial Exam: Initial Vitals Temp Pulse Resp BP Pulse Ox 97.9 F 71 16 129/77 94 09/13/18 16:09 09/13/18 16:09 09/13/18 16:09 09/13/18 16:09 09/13/18 16:09 Vital Signs Reviewed: Yes Diagnostics - Vital Signs Vital Signs Temp Pulse Resp BP Pulse Ox 09/13/18 16:09 97.9 F 71 16 129/77 94 - Laboratory Lab Statement: Any lab studies that have been ordered have been reviewed, and results considered in the medical decision making process. - Radiology elbow x-ray Radiology Interpretation Completed By: ED Physician Summary of Radiographic Findings: Negative for acute fracture or dislocation. Pending official imaging report. shoulder x-ray Radiology Interpretation Completed By: ED Physician Summary of Radiographic Findings: Negative for acute fracture or dislocation. Pending official imaging report. Course/Dx - Course Assessment/Plan: A 63 y/o female presents to [facility] with a chief complaint of left shoulder and forearm pain after a fall at the end of May 2018. She said that she did not want to go to the doctor but her pain kept increasing and now she is in excruciating pain. She rates her pain as a 10/10 in severity. She says that when she fell she landed on her left shoulder and forearm and now she has decreased ROM in her left arm. X-ray of the left elbow and left shoulder impression: Negative for acute fracture dislocation. X-rays were reviewed with Dr. Nuñez. Therefore, I believe that the patient has a rotator cuff injury. Therefore the patient will be placed in a shoulder sling and discharged home with follow-up with orthopedics. Patient is hemodynamically stable alert and oriented 3. - Diagnoses Provider Diagnoses: Rotator cuff injury Discharge - Sign-Out/Discharge Documenting (check all that apply): Patient Departure - DC Patient Received Moderate/Deep Sedation with Procedure: No - Discharge Plan Condition: Stable Disposition: HOME Prescriptions: Naproxen TAB* [Naprosyn 250 mg TAB*] 500 mg PO Q12H PRN #20 tab PRN Reason: Pain Patient Education Materials: Rotator Cuff Injury (ED) Referrals: Vin Nuñez MD [Medical Doctor] - Additional Instructions: FOLLOW UP WITH DR. NUÑEZ AND YOUR PRIMARY CARE PROVIDER WITHIN 2-3 DAYS. RETURN TO THE ED FOR ANY WORSENING OR NEW SYMPTOMS. - Billing Disposition and Condition Condition: STABLE Disposition: Home - Attestation Statements Document Initiated by Marisabele: Yes Documenting Scribe: Magdy Sarabia Provider For Whom Chris is Documenting (Include Credential): Israel Fonseca MD Scribe Attestation: IMagdy, scribed for Israel Fonseca MD on 09/14/18 at 1051. Scribe Documentation Reviewed: Yes Provider Attestation: The documentation as recorded by the Magdy henderson accurately reflects the service I personally performed and the decisions made by me, Israel Fonseca MD Status of Scribe Document: Viewed
[2018-09-13 18:32] VITALS: BP 125/68
== END 2018-09-13 18:31 | disposition home or self-care (01) ==
LOC: ED 15:44
DX: S46.002A Unspecified injury of muscle(s) and tendon(s) of the rotator cuff of left shoulder, initial encounter (principal); M79.632 Pain in left forearm; W19.XXXA Unspecified fall, initial encounter; Y92.9 Unspecified place or not applicable; M19.012 Primary osteoarthritis, left shoulder; M25.712 Osteophyte, left shoulder; Z88.5 Allergy status to narcotic agent; Z88.2 Allergy status to sulfonamides; F17.210 Nicotine dependence, cigarettes, uncomplicated
CPT/HCPCS: 96372; 99282; J1885

== ENCOUNTER 2019-01-03 16:24 | Emergency (ER) | payer BC, OTHER ==
[2019-01-03] MEDS ORDERED: Ketorolac INJ* 30 MG/ML 1 ML VIAL IM ONE (17:43)
[2019-01-03] MEDS ORDERED: Gabapentin CAP(*) 100 MG PO ONE (17:43)
[2019-01-03] MEDS ORDERED: Cyclobenzaprine TAB* 10 MG PO ONE (17:43)
--- NOTE | 2019-01-03 17:47 | ED ---
Upper Extremity Pain - HPI Summary HPI Summary: 63-year-old female presents with left shoulder pain for the past couple months. She states pain has gotten worse over the past couple days. She's been having limited range of motion. Injury was many months ago. She does not follow with orthopedic. Denies any numbness tingling. She is not dropping things. 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 She has no medical conditions. - History of Current Complaint Chief Complaint: EDShoulderClavicleInj Stated Complaint: LT SHOULDER/ARM INJ PER PT Time Seen by Provider: 01/03/19 17:24 Hx Last Menstrual Period: 5 yrs - Allergies/Home Medications Allergies/Adverse Reactions: Allergies Allergy/AdvReac Type Severity Reaction Status Date / Time morphine Allergy Swelling Verified 01/03/19 16:27 Of Face,Lips,& Throat Sulfa (Sulfonamide AdvReac Itching Verified 01/03/19 16:27 Antibiotics) PMH/Surg Hx/FS Hx/Imm Hx Endocrine/Hematology History: Reports: Hx Thyroid Disease - Hypothyroid Cardiovascular History: Denies: Hx Pacemaker/ICD Sensory History: Reports: Hx Contacts or Glasses Denies: Hx Hearing Aid Opthamlomology History: Reports: Hx Contacts or Glasses Psychiatric History: Reports: Hx Depression, Hx Community Mental Health Tx - distant past, Hx Substance Abuse, Other Psychiatric Issues/Disorders - OCD Denies: Hx Eating Disorder, Hx Panic Disorder, Hx of Violent Episodes Against Others Infectious Disease History: No Infectious Disease History: Denies: Traveled Outside the [place] in Last 30 Days - Family History Known Family History: Positive: Hypertension, Other - no hx suicide; kidney disease in her daughter - Social History Alcohol Use: None Substance Use Type: Reports: None Smoking Status (MU): Current Every Day Smoker Type: Cigarettes Amount Used/How Often: 1/2 PPD Length of Time of Smoking/Using Tobacco: "years" Have You Smoked in the Last Year: Yes Review of Systems Negative: Fever Negative: Chest Pain Negative: Shortness Of Breath Positive: Myalgia - left shoulder pain All Other Systems Reviewed And Are Negative: Yes Physical Exam Triage Information Reviewed: Yes Vital Signs On Initial Exam: Initial Vitals Temp Pulse Resp BP Pulse Ox 97.8 F 59 16 125/76 96 01/03/19 16:27 01/03/19 16:27 01/03/19 16:27 01/03/19 16:27 01/03/19 16:27 Vital Signs Reviewed: Yes Appearance: Positive: Well-Appearing Skin: Positive: Warm, Dry Head/Face: Positive: Normal Head/Face Inspection Eyes: Positive: Normal, Conjunctiva Clear ENT: Positive: Pharynx normal Respiratory/Lung Sounds: Positive: Clear to Auscultation, Breath Sounds Present Cardiovascular: Positive: Normal, RRR Musculoskeletal: Positive: Limited @ - left shoulder, Other - tenderness left biceps tendon and anterior shoulder, good pulses, pos yearsgons, unable to place arm behind back Neurological: Positive: Normal Psychiatric: Positive: Normal Procedures - Sedation Patient Received Moderate/Deep Sedation with Procedure: No Diagnostics - Vital Signs Vital Signs Temp Pulse Resp BP Pulse Ox 01/03/19 16:27 97.8 F 59 16 125/76 96 - Laboratory Lab Statement: Any lab studies that have been ordered have been reviewed, and results considered in the medical decision making process. Course/Dx - Course Course Of Treatment: 63-year-old female presents with left shoulder pain for the past couple months. She states pain has gotten worse over the past couple days. She's been having limited range of motion. Injury was many months ago. She does not follow with orthopedic. Denies any numbness tingling. She is not dropping things. 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 She has no medical conditions. On exam tenderness over left anterior shoulder and of her bicep tenderness. Positive yearsgons. Unable to left arm behind her back. Told needs to continues to range of motion. We'll place on gabapentin and gave Flexeril for pain. told follow-up orthopedic. Patient understands agrees with plan. - Diagnoses Differential Diagnosis/HQI/PQRI: Positive: Fracture (Closed), Strain, Sprain Provider Diagnoses: Left shoulder pain Discharge ED - Sign-Out/Discharge Documenting (check all that apply): Patient Departure - Discharge Plan Condition: Good Disposition: HOME Prescriptions: Cyclobenzaprine TAB* [Flexeril 10 MG TAB*] 10 mg PO TID PRN #21 tab PRN Reason: Pain - Moderate Gabapentin CAP(*) [Neurontin 300 CAP(*)] 300 mg PO TID #21 cap Patient Education Materials: Shoulder Pain (ED) Referrals: Vin Hendricks MD [Medical Doctor] - [facility] [place]] [facility] [Medical Doctor] - Additional Instructions: Take muscle relaxers three times a day take gabapentin twice a day tomorrow, three times a day thereafter Use ibuprofen or Tylenol for pain every 6 hours heat area, move as much as possible Follow up with ortho Return to ED if develop any new or worsening symptoms - Billing Disposition and Condition Condition: GOOD Disposition: Home
[2019-01-03 18:15] VITALS: BP 136/97
== END 2019-01-03 17:54 | disposition home or self-care (01) ==
LOC: ED 16:24
DX: M25.512 Pain in left shoulder (principal); E03.9 Hypothyroidism, unspecified; F32.9 Major depressive disorder, single episode, unspecified; F17.210 Nicotine dependence, cigarettes, uncomplicated; Z88.5 Allergy status to narcotic agent; Z88.2 Allergy status to sulfonamides
CPT/HCPCS: 96372; 99282; A9270-GY; J1885

== ENCOUNTER 2019-02-05 11:39 | Emergency (ER) | payer BC ==
[2019-02-05 11:48] VITALS: BP 139/70
--- NOTE | 2019-02-05 12:25 | UC ---
UC General HPI - HPI Summary HPI Summary: PT HERE REQUESTING REFILLS OF LEVOTHYROXINE AND GABAPENTIN. STATES SHE HAS BEEN OUT OF THYROID MEDICATION FOR ABOUT 2 WEEKS AND HAS BEEN TAKING HER GABAPENTIN IN EXCESS OF THE RECOMMENDED DOSAGE ON HER PRESCRIPTION AND RAN OUT SEVERAL DAYS AGO. REFILL NOT AVAILABLE FOR 9 MORE DAYS. STATES SHE DOES NOT HAVE A PCP AND THAT HER PSYCHIATRIST DR. MAGDALENO FAGAN CAN NOT SEE HER UNTIL 02/25/19. - History of Current Complaint Chief Complaint: UCGeneralIllness Stated Complaint: MEDICATION REFILL Time Seen by Provider: 02/05/19 12:03 Hx Obtained From: Patient Hx Last Menstrual Period: 5 yrs Pain Intensity: 0 - Allergy/Home Medications Allergies/Adverse Reactions: Allergies Allergy/AdvReac Type Severity Reaction Status Date / Time morphine Allergy Swelling Verified 02/05/19 11:49 Of Face,Lips,& Throat Sulfa (Sulfonamide AdvReac Itching Verified 02/05/19 11:49 Antibiotics) PMH/Surg Hx/FS Hx/Imm Hx Endocrine History: Hypothyroidism Psychological History: Post Traumatic Stress Disorder - Surgical History Surgical History: None - Family History Known Family History: Positive: Hypertension, Other - no hx suicide; kidney disease in her daughter - Social History Alcohol Use: None Alcohol Amount: recover alcoholic Substance Use Type: None Smoking Status (MU): Current Every Day Smoker Type: Cigarettes Amount Used/How Often: 1/2 PPD Length of Time of Smoking/Using Tobacco: "years" Have You Smoked in the Last Year: Yes Household Exposure Type: Cigarettes - Immunization History Most Recent Influenza Vaccination: never Most Recent Tetanus Shot: utd Most Recent Pneumonia Vaccination: never Review of Systems All Other Systems Reviewed And Are Negative: Yes Constitutional: Positive: Other - COMPLAINS OF "PAIN" Respiratory: Positive: Negative Cardiovascular: Positive: Negative Gastrointestinal: Positive: Negative Physical Exam Triage Information Reviewed: Yes Appearance: Well-Appearing, No Pain Distress, Well-Nourished Vital Signs: Initial Vital Signs Temp 98 F 02/05/19 11:46 Pulse 110 02/05/19 11:46 Resp 20 02/05/19 11:46 BP 139/70 02/05/19 11:46 Pulse Ox 100 02/05/19 11:46 Vital Signs Reviewed: Yes Eyes: Positive: Conjunctiva Clear ENT: Positive: Hearing grossly normal Neck: Positive: Supple Respiratory: Positive: No respiratory distress, No accessory muscle use Cardiovascular: Positive: Pulses Normal Abdomen Description: Positive: Soft Musculoskeletal: Positive: No Edema Neurological: Positive: Alert Psychological: Positive: Age Appropriate Behavior Skin: Negative: Rashes Course/Dx - Course Course Of Treatment: PATIENT STATES SHE DOES NOT HAVE A PRIMARY CARE PHYSICIAN AND HAS BEEN UNABLE TO REFILL HER MEDICATIONS WITH HER PSYCHIATRIST HE IS UNABLE TO SEE HER FOR 3 MORE WEEKS. SHE IS HERE REQUESTING LEVOTHYROXINE AND GABAPENTIN. LAST TSH ON RECORD IS OVER ONE YEAR AGO AND WAS NORMAL. UPON SPEAKING WITH test company PHARMACY IT APPEARS PATIENT HAS BEEN TAKING 88 G OF LEVOTHYROXINE REGULARLY. I HAVE REFILLED THIS FOR 30 DAYS AND STRESSED TO THE PATIENT THE IMPORTANCE OF ESTABLISHING WITH A PCP FOR FURTHER REFILLS. TSH CHECKED TODAY. SHE ADMITS TO TAKING THE GABAPENTIN MORE FREQUENTLY THEN ADVISED. SHE IS CURRENTLY PRESCRIBED 400 MG 2 CAPS 3 TIMES DAILY. SHE LAST REFILLED THIS ON AND HAS BEEN OUT FOR SEVERAL DAYS ALREADY. I COUNSELED HER ON THE IMPORTANCE OF TAKING MEDICATIONS PRESCRIBED. ACCORDING TO test company PHARMACY SHE ALSO HAS CLONAZEPAM 1 MG TWICE DAILY THAT WAS REFILLED ON . I DISCUSSED WITH THE PATIENT MY SAFETY CONCERNS FOR HER TAKING TOO MANY GABAPENTIN IN ADDITION TO HER BENZODIAZEPINE. I DECLINED TO REFILL THE GABAPENTIN TODAY. I ATTEMPTED TO REACH DR. FAGAN BUT THERE WAS NO ANSWER AT [facility]. I ENCOURAGED HER TO CALL BACK ON A DAILY BASIS TO SEE IF SHE CAN BE SEEN EARLIER. PT STRONGLY ENCOURAGED TO ESTABLISH WITH A PCP AND COUNSELED THAT THE ER AND UC ARE NOT APPROPRIATE VENUES TO REFILL HER CHRONIC MEDICATIONS. - Diagnoses Provider Diagnosis: Medication refill Discharge ED - Sign-Out/Discharge Documenting (check all that apply): Patient Departure All imaging exams completed and their final reports reviewed: No Studies - Discharge Plan Condition: Stable Disposition: HOME Prescriptions: Levothyroxine TAB* [Synthroid 88 MCG TAB*] 88 mcg PO DAILY #30 tab Patient Education Materials: Medicine Refill (ED) Referrals: [facility] [Outside] - If Needed Magdaleno Fagan MD [Medical Doctor] - 1 Week Additional Instructions: YOU MUST NOT TAKE YOUR MEDICATIONS IN EXCESS OF HOW THEY ARE PRESCRIBED. YOU MUST FOLLOW-UP WITH THE PRESCRIBING PHYSICIAN FOR YOUR PSYCHIATRIC MEDICATIONS INCLUDING GABAPENTIN. I HAVE REFILLED YOUR LEVOTHYROXINE FOR 30 DAYS HOWEVER YOU MUST ESTABLISH WITH A PCP FOR FURTHER REFILLS. TSH CHECKED TODAY. CALL THE NUMBER BELOW FOR ASSISTANCE IN ESTABLISHING WITH A PCP An additional resource available to assist in finding the appropriate physician for your health care needs is the [facility] ([facility]). You may contact them by calling [phone]. - Billing Disposition and Condition Condition: STABLE Disposition: Home
--- NOTE | 2019-02-06 08:25 | UC ---
- Progress Note Progress Note: TSH Laboratory results from February 05, 2019 comes back elevated at 13.1. Normal ranges 0.34 - 5.6. From the note of the same date the patient had been off of her levothyroxine for approximately 2 weeks. She was restarted on the levothyroxine 88 g daily and recommended to follow up with her primary care physician. Nursing to call patient inform her of the results indicating hypothyroidism after being off of her levothyroxine for 2 weeks. Patient to follow-up with her primary care doctor, get reevaluated sooner if worse or any questions or concerns. Course/Dx - Diagnoses Provider Diagnoses: Medication refill Discharge ED - Sign-Out/Discharge Documenting (check all that apply): Patient Departure All imaging exams completed and their final reports reviewed: No Studies - Discharge Plan Condition: Stable Disposition: HOME Prescriptions: Levothyroxine TAB* [Synthroid 88 MCG TAB*] 88 mcg PO DAILY #30 tab Patient Education Materials: Medicine Refill (ED) Referrals: [facility] [Outside] - If Needed Magdaleno Rossi MD [Medical Doctor] - 1 Week Additional Instructions: YOU MUST NOT TAKE YOUR MEDICATIONS IN EXCESS OF HOW THEY ARE PRESCRIBED. YOU MUST FOLLOW-UP WITH THE PRESCRIBING PHYSICIAN FOR YOUR PSYCHIATRIC MEDICATIONS INCLUDING GABAPENTIN. I HAVE REFILLED YOUR LEVOTHYROXINE FOR 30 DAYS HOWEVER YOU MUST ESTABLISH WITH A PCP FOR FURTHER REFILLS. TSH CHECKED TODAY. CALL THE NUMBER BELOW FOR ASSISTANCE IN ESTABLISHING WITH A PCP An additional resource available to assist in finding the appropriate physician for your health care needs is the [facility] ([facility]). You may contact them by calling [phone]. - Billing Disposition and Condition Condition: STABLE Disposition: Home
== END 2019-02-05 12:50 | disposition home or self-care (01) ==
LOC: UCEAST 11:39
DX: Z76.0 Encounter for issue of repeat prescription (principal); F17.210 Nicotine dependence, cigarettes, uncomplicated; E03.9 Hypothyroidism, unspecified; Z88.5 Allergy status to narcotic agent; Z88.2 Allergy status to sulfonamides; Z79.890 Hormone replacement therapy
CPT/HCPCS: 36415; 84443; 99202; G0463

== ENCOUNTER 2019-04-05 07:10 | Emergency (ER) | payer BC ==
[2019-04-05 07:21] VITALS: BP 128/69
[2019-04-05] MEDS ORDERED: Albuterol 2.5 MG/3 ML NEB.SOL* (0.083%) INH ONE (07:38)
[2019-04-05] MEDS ORDERED: Ipratropium 0.5MG/2.5ML NEB* 0.5 MG/2.5 ML NEB.SOLN INH ONE (07:38)
--- NOTE | 2019-04-05 07:41 | UC ---
Respiratory Complaint HPI - HPI Summary HPI Summary: The patient is 63-year-old female with a cough and wheezing times one and half weeks. She was seen here a few days ago and started on doxycycline. She refuses to continue to take the doxycycline stating that it doesn't do shit. She has COPD. She has taken a few days of prednisone and states that that helps however she is currently out of. She has no fever or chills. She has been using an albuterol inhaler. Her chest feels tight. She has no nausea vomiting or diarrhea. - History of Current Complaint Chief Complaint: UCRespiratory Stated Complaint: COUGH CONGESTION Time Seen by Provider: 04/05/19 07:33 Hx Obtained From: Patient Hx Last Menstrual Period: 5 yrs Onset/Duration: Gradual Onset, Lasting Weeks - 1 03/06 Timing: Constant Severity Initially: Mild Severity Currently: Moderate Pain Intensity: 0 Pain Scale Used: 0-10 Numeric Character: Cough: Nonproductive Aggravating Factors: Exertion, Deep Breaths, Recumbent Position Alleviating Factors: Nothing Associated Signs And Symptoms: Positive: Wheezing - Allergies/Home Medications Allergies/Adverse Reactions: Allergies Allergy/AdvReac Type Severity Reaction Status Date / Time morphine Allergy Swelling Verified 04/05/19 07:21 Of Face,Lips,& Throat Sulfa (Sulfonamide AdvReac Itching Verified 04/05/19 07:21 Antibiotics) PMH/Surg Hx/FS Hx/Imm Hx Previously Healthy: Yes Respiratory History: COPD, Bronchitis - Surgical History Surgical History: None - Family History Known Family History: Positive: Hypertension, Other - no hx suicide; kidney disease in her daughter Family History: hypothryrodism - Social History Alcohol Use: None Alcohol Amount: recover alcoholic Substance Use Type: None Smoking Status (MU): Current Some Day Smoker Type: Cigarettes Amount Used/How Often: 1/2 PPD Length of Time of Smoking/Using Tobacco: "years" Have You Smoked in the Last Year: Yes Household Exposure Type: Cigarettes Cessation Counseling: Patient Advised to Stop - Immunization History Most Recent Influenza Vaccination: never Most Recent Tetanus Shot: utd Most Recent Pneumonia Vaccination: never Review of Systems All Other Systems Reviewed And Are Negative: Yes Constitutional: Positive: Fatigue Skin: Positive: Negative Eyes: Positive: Negative ENT: Positive: Negative Respiratory: Positive: Cough, Other - wheezing Cardiovascular: Positive: Negative Gastrointestinal: Positive: Negative Genitourinary: Positive: Negative Motor: Positive: Negative Neurovascular: Positive: Negative Musculoskeletal: Positive: Negative Neurological: Positive: Negative Psychological: Positive: Negative Physical Exam Triage Information Reviewed: Yes Appearance: Well-Appearing, No Pain Distress, Well-Nourished Vital Signs: Initial Vital Signs Temp 98.1 F 04/05/19 07:17 Pulse 64 04/05/19 07:17 Resp 18 04/05/19 07:17 BP 128/69 04/05/19 07:17 Pulse Ox 95 04/05/19 07:17 Vital Signs Reviewed: Yes Eyes: Positive: Conjunctiva Clear ENT: Positive: Hearing grossly normal, Nasal congestion, TMs normal, Uvula midline. Negative: Nasal drainage, Tonsillar swelling, Tonsillar exudate, Trismus, Muffled voice, Hoarse voice, Sinus tenderness Dental: Negative: Abscess @ Neck: Positive: Supple, Nontender, No Lymphadenopathy Respiratory: Positive: No respiratory distress, No accessory muscle use, Wheezing Cardiovascular: Positive: RRR, No Murmur. Negative: Tachycardia Musculoskeletal: Positive: ROM Intact, No Edema Neurological: Positive: Alert Psychological Exam: Normal Skin Exam: Normal Re-Evaluation - Re-Evaluation First Eval Re-Evaluation Time: 08:12 Change: Improved - improved but still with significant wheezing/decline further nebs Respiratory Course/Dx - Course Course Of Treatment: advised her that I thought doxy was a great choice of antibiotics she steadfastly refuses to continue it - Differential Dx/Diagnosis Provider Diagnosis: Acute bronchitis Discharge ED - Sign-Out/Discharge Documenting (check all that apply): Patient Departure All imaging exams completed and their final reports reviewed: No Studies - Discharge Plan Condition: Improved Disposition: HOME Prescriptions: Azithromycin TAB* [Zithromax TAB*] 250 mg PO DAILY #6 tab predniSONE 20 mg TAB [Deltasone 20 MG TAB*] 40 mg PO DAILY #8 tab Patient Education Materials: Acute Bronchitis (ED) Referrals: No Primary Care Phys,NOPCP [Primary Care Provider] - Additional Instructions: you need to stop smoking stop doxy start [id number] use your inhaler as directed to ER for worsening symptoms or if not dramatically improved in the next few days see your PCP in 4-5 days - Billing Disposition and Condition Condition: IMPROVED Disposition: Home
== END 2019-04-05 08:26 | disposition home or self-care (01) ==
LOC: UCEAST 07:10
DX: J44.0 Chronic obstructive pulmonary disease with (acute) lower respiratory infection (principal); J20.9 Acute bronchitis, unspecified; F17.210 Nicotine dependence, cigarettes, uncomplicated; Z88.5 Allergy status to narcotic agent; Z88.2 Allergy status to sulfonamides
CPT/HCPCS: 99212; G0463; J7512

== ENCOUNTER 2019-04-14 20:03 | Emergency (ER) | payer BC ==
[2019-04-14 20:12] VITALS: BP 85/45
== END 2019-04-14 22:48 | disposition left against medical advice (07) ==
LOC: ED 20:03
DX: Z53.21 Procedure and treatment not carried out due to patient leaving prior to being seen by health care provider (principal); S09.90XA Unspecified injury of head, initial encounter
CPT/HCPCS: 99282

== ENCOUNTER 2021-04-19 11:26 | Inpatient (IN) ==
[2021-04-19 12:12] LABS: Urine Appearance Clear; Urine Bilirubin Negative (Negative); Urine Blood 2+ (Negative); Urine Color Straw; Urine Glucose Negative (Negative); Urine Ketones Negative (Negative); Urine Nitrite Negative (Negative); Urine Protein Negative (Negative); Urine Specific Gravity 1.004 (1.002-1.030); Urine Urobilinogen Negative (Negative)
[2021-04-19 12:20] LABS: Urine Bacteria 1+ (Absent); Urine Red Blood Cell Trace(0-2/hpf) (Absent); Urine Squamous Epithelial Cell Present (Absent); Urine White Blood Cell Trace(0-5/hpf) (Absent)
[2021-04-19 12:36] LABS: Urine Benzodiazepine Screen None Detected (None Detect); Urine Cannabinoids Screen None Detected (None Detect); Urine Opiates Screen None Detected (None Detect)
[2021-04-19 16:55] LABS: ALT 15 U/L (7-52); Acetaminophen < 15 mcg/mL; Albumin 4.1 g/dL (3.2-5.2); Albumin/Globulin Ratio 1.5 (1-3); Alcohol, S 49 mg/dL (<13); Alkaline Phosphatase 75 U/L (35-149); Blood Urea Nitrogen 10 mg/dL (6-24); CO2 Carbon Dioxide 21 mmol/L (22-32); Calcium 9.4 mg/dL (8.6-10.3); Chloride 109 mmol/L (101-111); Globulin 2.7 g/dL (2-4); Glucose 84 mg/dL (70-100); Salicylate < 2.50 mg/dL (<30); Sodium 141 mmol/L (135-145); Total Protein 6.8 g/dL (6.4-8.9); eGFR CKD-EPI 97.4 (>60)
[2021-04-19 16:56] LABS: ABS Basophils 0.1 10^3/ul (0-0.2); ABS Eosinophils 0.2 10^3/ul (0-0.6); ABS Lymphocytes 2.6 10^3/ul (1.0-4.8); ABS Monocytes 0.5 10^3/ul (0-0.8); ABS Neutrophils 4.6 10^3/ul (1.5-7.7); Eosinophil % 2.5 %; Hematocrit 42 % (35-47); Hemoglobin 14.3 g/dL (12.0-16.0); Lymphocyte % 32.4 %; Mean Corpuscular HGB Conc 34 g/dL (31-36); Mean Corpuscular Hemoglobin 32 pg (27-31); Mean Corpuscular Volume 95 fL (80-97); Nucleated Red Blood Cells % 0.2; Platelet Count 295 10^3/uL (150-450); Red Blood Count 4.44 10^6 /uL (3.70-4.87); Red Cell Distribution Width 14 % (10-15); White Blood Count 7.9 10^3/uL (3.5-10.8)
[2021-04-19 17:04] LABS: TSH Ultra Thyroid Stim Horm 0.08 mcIU/mL (0.34-5.60)
[2021-04-19] MEDS ORDERED: Al Hydrox/Mg Hydrox/Simet LIQ 30 ML UDC PO PRN (17:08)
[2021-04-19] MEDS ORDERED: Nicotine GUM 2MG FRUIT FLAVOR PO PRN (17:08)
[2021-04-19 18:23] LABS: AST 22 U/L (13-39); Anion Gap 11 mmol/L (2-11); Potassium 4.2 mmol/L (3.5-5.0)
[2021-04-19] MEDS: Nicotine PATCH 21 MG/24 HR PATCH TRANSDERM SCH (21:08)
[2021-04-20 07:30] LABS: HDL Cholesterol 81.7 mg/dL
[2021-04-20] MEDS: Nicotine PATCH 21 MG/24 HR PATCH TRANSDERM SCH (10:51)
[2021-04-21] MEDS: Nicotine PATCH 21 MG/24 HR PATCH TRANSDERM SCH (08:33)
[2021-04-21] MEDS: Albuterol HFA INHALER 8 gm MDI INH PRN (16:49)
[2021-04-22] MEDS: Nicotine PATCH 21 MG/24 HR PATCH TRANSDERM SCH (08:03)
[2021-04-22] MEDS: Albuterol HFA INHALER 8 gm MDI INH PRN (13:30)
[2021-04-23] MEDS: Nicotine PATCH 21 MG/24 HR PATCH TRANSDERM SCH (08:38)
[2021-04-23] MEDS: Albuterol HFA INHALER 8 gm MDI INH PRN (10:58)
[2021-04-24] MEDS: Nicotine PATCH 21 MG/24 HR PATCH TRANSDERM SCH (07:33)
[2021-04-25] MEDS: Nicotine PATCH 21 MG/24 HR PATCH TRANSDERM SCH (07:45)
[2021-04-26] MEDS: Nicotine PATCH 21 MG/24 HR PATCH TRANSDERM SCH (07:32)
[2021-04-27 08:31] VITALS: BP 117/52
[2021-04-27] MEDS: Nicotine PATCH 21 MG/24 HR PATCH TRANSDERM SCH (08:50)
[2021-04-28] MEDS ORDERED: Nicotine PATCH 21 MG/24 HR PATCH TRANSDERM SCH (09:00)
== END 2021-04-27 12:20 | disposition home or self-care (01) | DRG 881 ==
LOC: ED 11:26 → BSU 17:08
PROVIDERS: ADMIT Psychiatry & Neurology Psychiatry; ATTEND Student in an Organized Health Care Education/Training Program

== ENCOUNTER 2021-11-11 13:28 | Inpatient (IN) ==
[2021-11-11] MEDS ORDERED: Albuterol/Ipratropium NEB.SOL (2.5/0.5 MG) 3 ML NEB.SOLN INH ONE ×2 (14:13→17:26)
[2021-11-11] MEDS ORDERED: Albuterol HFA INHALER 8 gm MDI INH ONE (14:16)
[2021-11-11] MEDS ORDERED: methylPREDNISolone SOD SUCC 125 mg 2 ML VIAL IV ONE (14:33)
[2021-11-11] MEDS ORDERED: cefTRIAXone 1 gm/50 mL D5W 1 GM/50 ML BAG IV ONE (14:34)
[2021-11-11 16:10] LABS: C Reactive Protein 162.83 mg/L (<8.01)
[2021-11-11 16:25] LABS: ABS Basophils 0.1 10^3/ul (0-0.2); ABS Eosinophils 0.5 10^3/ul (0-0.6); ABS Lymphocytes 1.7 10^3/ul (1.0-4.8); ABS Monocytes 0.9 10^3/ul (0-0.8); ABS Neutrophils 12.9 10^3/ul (1.5-7.7); Eosinophil % 2.9 %; Hematocrit 41 % (35-47); Hemoglobin 13.6 g/dL (12.0-16.0); Lymphocyte % 10.4 %; Mean Corpuscular HGB Conc 33 g/dL (31-36); Mean Corpuscular Hemoglobin 31 pg (27-31); Mean Corpuscular Volume 92 fL (80-97); Mean Platelet Volume 7.7 fL (7.4-10.4); Platelet Count 343 10^3/uL (150-450); Red Blood Count 4.44 10^6 /uL (3.70-4.87); Red Cell Distribution Width 14 % (10-15); White Blood Count 15.9 10^3/uL (3.5-10.8)
[2021-11-11 16:42] LABS: High Sensitivity Troponin 1 Hr 7 pg/mL (<15)
[2021-11-11 17:09] LABS: Calcium 9.4 mg/dL (8.6-10.3); Potassium 3.8 mmol/L (3.5-5.0); eGFR CKD-EPI 90.1 (>60)
[2021-11-11] MEDS ORDERED: Al Hydrox/Mg Hydrox/Simet LIQ 30 ML UDC PO PRN (17:24)
[2021-11-11] MEDS: methylPREDNISolone SOD SUCC 40 mg/ml 1 ml VIAL IV SCH (18:32)
[2021-11-11] MEDS: Albuterol HFA INHALER 8 gm MDI INH SCH ×2 (18:33→22:42)
[2021-11-11] MEDS: Enoxaparin 40 MG/0.4 ML SYR SUBCUT SCH (18:34)
[2021-11-11] MEDS: DOXYcycline 100 MG in NS 0.9% 250 ml 250 ML IVPB SCH (19:37)
[2021-11-11] MEDS: Albuterol/Ipratropium NEB.SOL (2.5/0.5 MG) 3 ML NEB.SOLN INH SCH (21:06)
[2021-11-12] MEDS: methylPREDNISolone SOD SUCC 40 mg/ml 1 ml VIAL IV SCH ×4 (01:42→23:14)
[2021-11-12] MEDS: DOXYcycline 100 MG in NS 0.9% 250 ml 250 ML IVPB SCH ×2 (06:14→18:17)
[2021-11-12] MEDS: Albuterol/Ipratropium NEB.SOL (2.5/0.5 MG) 3 ML NEB.SOLN INH SCH ×3 (07:08→19:32)
[2021-11-12] MEDS: Albuterol HFA INHALER 8 gm MDI INH SCH (09:15)
[2021-11-12] MEDS: cefTRIAXone 1 gm/50 mL D5W 1 GM/50 ML BAG IV SCH (13:33)
[2021-11-12] MEDS: Enoxaparin 40 MG/0.4 ML SYR SUBCUT SCH (18:17)
[2021-11-13] MEDS: DOXYcycline 100 MG in NS 0.9% 250 ml 250 ML IVPB SCH ×2 (05:21→17:50)
[2021-11-13] MEDS: Albuterol/Ipratropium NEB.SOL (2.5/0.5 MG) 3 ML NEB.SOLN INH SCH ×3 (07:36→20:19)
[2021-11-13] MEDS: methylPREDNISolone SOD SUCC 40 mg/ml 1 ml VIAL IV SCH ×2 (11:55→21:06)
[2021-11-13] MEDS: cefTRIAXone 1 gm/50 mL D5W 1 GM/50 ML BAG IV SCH (13:46)
[2021-11-13] MEDS: Enoxaparin 40 MG/0.4 ML SYR SUBCUT SCH (17:51)
[2021-11-14] MEDS: DOXYcycline 100 MG in NS 0.9% 250 ml 250 ML IVPB SCH (05:27)
[2021-11-14 06:11] LABS: ABS Lymphocytes 1.5 10^3/ul (1.0-4.8); ABS Monocytes 1.2 10^3/ul (0-0.8); ABS Neutrophils 18.6 10^3/ul (1.5-7.7); Hematocrit 38 % (35-47); Hemoglobin 12.5 g/dL (12.0-16.0); Lymphocyte % 7.2 %; Mean Corpuscular HGB Conc 33 g/dL (31-36); Mean Corpuscular Hemoglobin 30 pg (27-31); Mean Corpuscular Volume 92 fL (80-97); Mean Platelet Volume 8.1 fL (7.4-10.4); Platelet Count 370 10^3/uL (150-450); Red Blood Count 4.13 10^6 /uL (3.70-4.87); Red Cell Distribution Width 14 % (10-15); White Blood Count 21.4 10^3/uL (3.5-10.8)
[2021-11-14 06:36] LABS: C Reactive Protein 91.04 mg/L (<8.01); Potassium 4.5 mmol/L (3.5-5.0); eGFR CKD-EPI 97.5 (>60)
[2021-11-14] MEDS: Albuterol/Ipratropium NEB.SOL (2.5/0.5 MG) 3 ML NEB.SOLN INH SCH ×3 (07:52→18:41)
[2021-11-14] MEDS: Azithromycin 500 mg/250 ml NS 500 MG/250 ML BAG IVPB SCH (11:17)
[2021-11-14] MEDS: methylPREDNISolone SOD SUCC 40 mg/ml 1 ml VIAL IV SCH ×2 (11:17→20:42)
[2021-11-14] MEDS: cefTRIAXone 1 gm/50 mL D5W 1 GM/50 ML BAG IV SCH (14:18)
[2021-11-14] MEDS: Mometasone/Formoter 200/5 MDI INH SCH (18:41)
[2021-11-14] MEDS: Enoxaparin 40 MG/0.4 ML SYR SUBCUT SCH (20:41)
[2021-11-15] MEDS: methylPREDNISolone SOD SUCC 40 mg/ml 1 ml VIAL IV SCH ×3 (02:49→20:51)
[2021-11-15] MEDS: Albuterol/Ipratropium NEB.SOL (2.5/0.5 MG) 3 ML NEB.SOLN INH SCH ×3 (07:23→19:24)
[2021-11-15] MEDS: Mometasone/Formoter 200/5 MDI INH SCH ×2 (07:23→19:24)
[2021-11-15] MEDS: Azithromycin 500 mg/250 ml NS 500 MG/250 ML BAG IVPB SCH (11:14)
[2021-11-15] MEDS ORDERED: methylPREDNISolone SOD SUCC 40 mg/ml 1 ml VIAL IV SCH (14:00)
[2021-11-15] MEDS: cefTRIAXone 1 gm/50 mL D5W 1 GM/50 ML BAG IV SCH (15:19)
[2021-11-15] MEDS: Enoxaparin 40 MG/0.4 ML SYR SUBCUT SCH (17:05)
[2021-11-16] MEDS: Mometasone/Formoter 200/5 MDI INH SCH (07:52)
[2021-11-16] MEDS: Albuterol/Ipratropium NEB.SOL (2.5/0.5 MG) 3 ML NEB.SOLN INH SCH ×2 (07:52→12:24)
[2021-11-16] MEDS: methylPREDNISolone SOD SUCC 40 mg/ml 1 ml VIAL IV SCH (07:55)
[2021-11-16] MEDS: Azithromycin 500 mg/250 ml NS 500 MG/250 ML BAG IVPB SCH (10:49)
[2021-11-16 12:12] VITALS: BP 105/52
[2021-11-16] MEDS: cefTRIAXone 1 gm/50 mL D5W 1 GM/50 ML BAG IV SCH (13:50)
== END 2021-11-16 16:00 | disposition home or self-care (01) | DRG 872 ==
LOC: ED 13:28 → EDHOLD 13:28 → ICU 11-12 00:46 → MED 11-12 15:56
PROVIDERS: ADMIT Internal Medicine; ATTEND Internal Medicine

== ENCOUNTER 2022-11-30 12:48 | Inpatient (IN) ==
[2022-11-30 13:42] LABS: ABS Basophils 0.1 10^3/uL (0.0-0.1); ABS Eosinophils 0.2 10^3/uL (0.0-0.5); ABS Lymphocytes 2.5 10^3/uL (1.0-4.8); ABS Monocytes 0.6 10^3/uL (0.0-0.9); ABS Neutrophils 7.1 10^3/uL (1.5-7.6); ABS Nucleated RBC 0.02 10^3/ul; Eosinophil % 1.6 %; Hematocrit 41.9 % (35-45); Hemoglobin 14.8 g/dL (11.5-14.3); Lymphocyte % 24.3 %; Mean Corpuscular Hemoglobin 33.5 pg (27-33); Mean Corpuscular Hgb Conc 35.3 g/dL (31-36); Mean Corpuscular Volume 94.8 fL (80-97); Mean Platelet Volume 7.6 fL (7.5-11.2); Nucleated Red Blood Cells % 0.2 /100 WBC (0.0-0.4); Platelet Count 381 10^3/uL (150-450); Red Blood Count 4.42 10^6/uL (3.63-4.92); Red Cell Distribution Width 13.3 % (12-17); White Blood Count 10.4 10^3/uL (3.8-11.8)
[2022-11-30 13:44] LABS: Urine Appearance Cloudy; Urine Bilirubin Negative (Negative); Urine Blood 1+ (Negative); Urine Color Straw; Urine Glucose Negative (Negative); Urine Ketones Negative (Negative); Urine Nitrite Negative (Negative); Urine Protein Negative (Negative); Urine Specific Gravity 1.004 (1.002-1.030); Urine Urobilinogen Negative (Negative)
[2022-11-30 13:48] LABS: Urine Bacteria Absent (Absent); Urine Red Blood Cell Trace(0-2/hpf) (Absent); Urine Squamous Epithelial Cell Present (Absent); Urine White Blood Cell Trace(0-5/hpf) (Absent)
[2022-11-30 13:57] LABS: Albumin 4.4 g/dL (3.2-5.2); Anion Gap 14 mmol/L (2-16); CO2 Carbon Dioxide 20 mmol/L (22-32); Calcium 9.2 mg/dL (8.6-10.3); Chloride 103 mmol/L (101-111); Potassium 4.1 mmol/L (3.5-5.0); Sodium 137 mmol/L (135-145)
[2022-11-30 14:03] LABS: ALT 41 U/L (7-52); AST 40 U/L (13-39); Albumin/Globulin Ratio 1.6 (1-3); Alkaline Phosphatase 93 U/L (35-149); Blood Urea Nitrogen 15 mg/dL (6-24); Creatinine, Serum 0.76 mg/dL (0.51-0.95); Globulin 2.8 g/dL (2-4); Glucose 74 mg/dL (70-100); Total Protein 7.2 g/dL (6.4-8.9); eGFR CKD-EPI 85.3 (>60)
[2022-11-30 14:24] LABS: Acetaminophen < 15 mcg/mL; Alcohol, S 51 mg/dL (<13); Salicylate < 2.50 mg/dL (<30)
[2022-11-30 14:44] LABS: Urine Benzodiazepine Screen None Detected (None Detect); Urine Cannabinoids Screen None Detected (None Detect); Urine Opiates Screen None Detected (None Detect)
[2022-11-30 16:31] LABS: TSH Ultra Thyroid Stim Horm 14.32 mcIU/mL (0.34-5.60)
[2022-11-30] MEDS ORDERED: Al Hydrox/Mg Hydrox/Simet LIQ 30 ML UDC PO PRN (20:55)
[2022-11-30] MEDS ORDERED: Nicotine GUM 2MG FRUIT FLAVOR PO PRN (21:00)
[2022-11-30] MEDS ORDERED: Albuterol HFA INHALER 8 gm MDI INH PRN (21:12)
[2022-12-01] MEDS: Mometasone/Formoter 200/5 MDI INH SCH ×2 (07:59→20:20)
[2022-12-01 09:17] LABS: HDL Cholesterol 89.4 mg/dL
[2022-12-01] MEDS: Vitamin THERAPEUTIC TAB PO SCH (10:40)
[2022-12-01] MEDS: Nicotine PATCH 21 MG/24 HR PATCH TRANSDERM SCH (10:40)
[2022-12-02] MEDS: Nicotine PATCH 21 MG/24 HR PATCH TRANSDERM SCH (07:54)
[2022-12-02] MEDS: Mometasone/Formoter 200/5 MDI INH SCH (07:54)
[2022-12-02] MEDS: Vitamin THERAPEUTIC TAB PO SCH (07:55)
[2022-12-03] MEDS: Mometasone/Formoter 200/5 MDI INH SCH ×3 (00:27→19:59)
[2022-12-03] MEDS: Vitamin THERAPEUTIC TAB PO SCH (08:00)
[2022-12-03] MEDS: Nicotine PATCH 21 MG/24 HR PATCH TRANSDERM SCH (08:00)
[2022-12-04] MEDS: Vitamin THERAPEUTIC TAB PO SCH (08:27)
[2022-12-04 10:00] VITALS: BP 137/75
[2022-12-04] MEDS: Mometasone/Formoter 200/5 MDI INH SCH ×2 (10:41→20:18)
[2022-12-04] MEDS: Nicotine PATCH 21 MG/24 HR PATCH TRANSDERM SCH (13:44)
[2022-12-05] MEDS: Vitamin THERAPEUTIC TAB PO SCH (08:19)
[2022-12-05] MEDS: Mometasone/Formoter 200/5 MDI INH SCH ×2 (08:22→19:16)
[2022-12-05] MEDS: Nicotine PATCH 21 MG/24 HR PATCH TRANSDERM SCH (08:46)
[2022-12-05] MEDS: Calcium Carb (TUMS) 500 mg CHEW TAB PO SCH (20:44)
[2022-12-06] MEDS: Vitamin THERAPEUTIC TAB PO SCH (08:21)
[2022-12-06] MEDS: Nicotine PATCH 21 MG/24 HR PATCH TRANSDERM SCH (08:21)
[2022-12-06] MEDS: Mometasone/Formoter 200/5 MDI INH SCH (08:22)
[2022-12-06] MEDS: Calcium Carb (TUMS) 500 mg CHEW TAB PO SCH (08:23)
== END 2022-12-06 11:30 | disposition home or self-care (01) | DRG 885 ==
LOC: ED 12:48 → BSU 19:41
PROVIDERS: ADMIT Psychiatry & Neurology Psychiatry; ATTEND Psychiatry & Neurology Psychiatry